=== PATIENT | female | born 1970 | race Caucasian/White ===

== ENCOUNTER 2017-07-27 10:23 | Inpatient (IN) | payer OTHER ==
[2017-07-27 11:31] VITALS: BMI 23.4
--- NOTE | 2017-07-27 13:06 | HP ---
CIWA Score - CIWA Score Nausea/Vomitin-Mild Nausea/No Vomiting Muscle Tremors: 4-Moderate,w/Arms Extend Anxiety: 4-Mod. Anxious/Guarded Agitation: 4-Moderately Restless Paroxysmal Sweats: 3 Orientation: 0-Oriented Tacttile Disturbances: 0-None Auditory Disturbances: 0-None Visual Disturbances: 0-None Headache: 1-Very Mild CIWA-Ar Total Score: 17 Admission ROS BHS - HPI Chief Complaint: I am here for detox Allergies/Adverse Reactions: Allergies Allergy/AdvReac Type Severity Reaction Status Date / Time No Known Allergies Allergy Verified 07/27/17 11:55 History of Present Illness: pt is a 47yr old female with a history of alcohol and cocaine dependence seeking detox for treatment. Exam Limitations: No Limitations - Ebola screening Have you traveled outside of the country in the last 21 days: No Have you had contact with anyone from an Ebola affected area: No Have you been sick,other than usual withdrawal symptoms: No Do you have a fever: No - Review of Systems Constitutional: Chills, Diaphoresis, Night Sweats, Changes in sleep, Unintentional Wgt. Loss EENT: reports: No Symptoms Reported, Tearing, Nose Congestion Respiratory: reports: No Symptoms reported Cardiac: reports: No Symptoms Reported, Lightheadedness, Syncope GI: reports: Diarrhea, Nausea, Poor Appetite, Poor Fluid Intake, Vomiting, Indigestion : reports: No Symptoms Reported Musculoskeletal: reports: Back Pain, Joint Pain Integumentary: reports: Flushing, Pruritus, Sweating Neuro: reports: Headache, Tingling, Tremors Endocrine: reports: Excessive Sweating, Flushing, Intolerance to Cold, Intolerance to Heat Hematology: reports: No Symptoms Reported Psychiatric: reports: Judgement Intact, Mood/Affect Appropiate, Orientated x3, Agitated, Anxious Other Systems: Reviewed and Negative Patient History - Patient Medical History Hx Anemia: No Hx Asthma: No Hx Chronic Obstructive Pulmonary Disease (COPD): No Hx Cancer: No Hx Cardiac Disorders: No Hx Congestive Heart Failure: No Hx Hypertension: Yes (non compliant) Hx Hypercholesterolemia: No Hx Pacemaker: No HX Cerebrovascular Accident: No Hx Seizures: No Hx Dementia: No Hx Diabetes: No Hx Gastrointestinal Disorders: No Hx Liver Disease: No Hx Genitourinary Disorders: No Hx Sexually Transmitted Disorders: No Hx Renal Disease (ESRD): No Hx Thyroid Disease: No Hx Human Immunodeficiency Virus (HIV): No (negative) Hx Hepatitis C: Yes Hx Depression: Yes Hx Suicide Attempt: Yes (Tried to overdose at age 15 yrs old/ denies any S/H ideation) Hx Bipolar Disorder: Yes Hx Schizophrenia: Yes - Patient Surgical History Past Surgical History: Yes Hx Neurologic Surgery: No Hx Cataract Extraction: No Hx Cardiac Surgery: No Hx Lung Surgery: No Hx Breast Surgery: No Hx Breast Biopsy: No Hx Abdominal Surgery: No Hx Appendectomy: No Hx Cholecystectomy: No Hx Genitourinary Surgery: No Hx Section: Yes (x3 [id number]) Hx Orthopedic Surgery: No Other Surgical History: facila contusion with repaired nose, mouth and lip areas ( stitched. Contus Anesthesia Reaction: No - PPD History Previous Implant?: Yes Documented Results: Negative w/o proof Implanted On Prior [facility] Admission?: Yes PPD to be Administered?: Yes - Reproductive History Patient is a Female of Child Bearing Age (11 -55 yrs old): Yes Last Menstrual Period: 07/19/17 Patient : No - Smoking Cessation Smoking history: Current every day smoker Have you smoked in the past 12 months: Yes Aproximately how many cigarettes per day: 5 Hx Chewing Tobacco Use: No Initiated information on smoking cessation: Yes 'Breaking Loose' booklet given: 07/27/17 - Substance & Tx. History Hx Alcohol Use: Yes Hx Substance Use: Yes Substance Use Type: Alcohol, Cocaine Hx Substance Use Treatment: Yes (last detox [facility]) - Substances Abused Alcohol Route: Oral Frequency: Daily Amount used: 2-3 PINTS VODKA Age of first use: 17 Date of Last Use: 07/27/17 Crack Route: Smoking Frequency: Daily Amount used: 2 BAGS Age of first use: 35 Date of Last Use: 07/26/17 Family Disease History - Family Disease History Family Disease History: Heart Disease: Mother, Respiratory: Father (etoh), Other : Son Admission Physical Exam BHS - Vital Signs Vital Signs: Vital Signs - 24 hr 07/27/17 11:24 Temperature 96.7 F L Pulse Rate 88 Respiratory 18 Rate Blood Pressure 139/91 - Physical General Appearance: Yes: Appropriately Dressed, Moderate Distress, Tremorous, Irritable, Sweating, Anxious HEENTM: Yes: Normal Voice, Nasal Congestion, Rhinorrhea Respiratory: Yes: Lungs Clear, Normal Breath Sounds, No Respiratory Distress Neck: Yes: No masses,lesions,Nodules Breast: Yes: Within Normal Limits Cardiology: Yes: Regular Rhythm, Regular Rate, S1, S2 Abdominal: Yes: Normal Bowel Sounds, Non Tender, Soft Genitourinary: Yes: Within Normal Limits Back: Yes: Normal Inspection Musculoskeletal: Yes: full range of Motion Extremities: Yes: Normal Capillary Refill, Normal Inspection, Non-Tender, Tremors Neurological: Yes: Fully Oriented, Alert, Normal Response Integumentary: Yes: Diaphoresis, Rash Lymphatic: Yes: Within Normal Limits - Diagnostic (1) Alcohol dependence with uncomplicated withdrawal Current Visit: Yes Status: Chronic (2) Cocaine dependence Current Visit: No Status: Acute Qualifiers: Substance use status: uncomplicated Qualified Code(s): F14.20 - Cocaine dependence, uncomplicated (3) Nicotine dependence Current Visit: No Status: Chronic Qualifiers: Nicotine product type: cigarettes Substance use status: uncomplicated Qualified Code(s): F17.210 - Nicotine dependence, cigarettes, uncomplicated Cleared for Admission [facility] - Detox or Rehab [facility] Level of Care: Medically Managed Detox Regimen/Protocol: Librium [facility] Breath Alcohol Content Breath Alcohol Content: 0.008 Urine Pregancy Test - Result Urine Test Results: Negative- NO Line Present Urine Drug Screen - Results Drug Screen Negative: No Urine Drug Screen Results: JEAN-Cocaine
[2017-07-27] MEDS ORDERED: LOPERAMIDE HCL 2 MG CAPSULE PO PRN (13:13)
[2017-07-27] MEDS ORDERED: guaiFENesin/D-METHORPHAN HB 10 ML UNIT-DOSE CUPS PO PRN (13:13)
[2017-07-27] MEDS ORDERED: hydrOXYzine PAMOATE 50 MG CAPSULE (FP) PO PRN (13:13)
[2017-07-27] MEDS ORDERED: NICOTINE POLACRILEX 4 MG GUM BUC PRN (13:13)
[2017-07-27] MEDS ORDERED: MAG HYDROX/AL HYDROX/SIMETH 30 ML UNIT-DOSE CUP PO PRN (13:13)
[2017-07-27] MEDS ORDERED: chlordiazePOXIDE HCL 25 MG CAPSULE PO PRN (13:13)
[2017-07-27] MEDS ORDERED: MAGNESIUM HYDROX 2400MG/30ML ORAL SUSPENSION 30 ML CUP PO PRN (13:13)
[2017-07-27] MEDS ORDERED: MENTHOL/PHENOL 1 EACH UD MM PRN (13:13)
[2017-07-27] MEDS ORDERED: P-EPHED 60MG/TRIPROLIDI 2.5MG TABLET PO PRN (13:13)
[2017-07-27] MEDS ORDERED: MAGNESIUM CITRATE 300 ML BOTTLE PO PRN (13:13)
[2017-07-27] MEDS ORDERED: ACETAMINOPHEN 325 MG TABLET (FP) PO PRN (13:13)
[2017-07-27] MEDS ORDERED: COLLOIDAL OATMEAL 1 BAR EACH TP PRN (13:18)
[2017-07-27] MEDS ORDERED: amLODIPine BESYLATE 10 MG TABLET (FP) PO ONE (14:25)
[2017-07-27] MEDS ORDERED: chlordiazePOXIDE HCL 25 MG CAPSULE PO ONE (14:26)
[2017-07-27] MEDS: IBUPROFEN 400 MG TABLET (FP) PO PRN ×2 (15:36→22:21)
[2017-07-27] MEDS: chlordiazePOXIDE HCL 25 MG CAPSULE PO SCH ×2 (16:46→22:22)
[2017-07-27 18:19] LABS: URINE APPEARANCE SLCLOUDY; URINE BILIRUBIN NEGATIVE (NEGATIVE); URINE BLOOD 1+ (NEGATIVE); URINE COLOR YELLOW; URINE GLUCOSE (UA) NEGATIVE (NEGATIVE); URINE KETONE NEGATIVE (NEGATIVE); URINE LEUK ESTERASE TRACE (NEGATIVE); URINE NITRITE NEGATIVE (NEGATIVE); URINE PROTEIN NEGATIVE (NEGATIVE)
[2017-07-27 18:58] LABS: URINE BACTERIA RARE /hpf (NONE SEEN); URINE MUCUS RARE; URINE RBC <1 /hpf (0-3); URINE WBC 19 /hpf (3-5)
[2017-07-27] MEDS: THIAMINE HCL 100 MG TABLET (FP) PO SCH (22:21)
[2017-07-27] MEDS: CLOTRIMAZOLE/BETAMET DIPROP TOPICAL CREAM 45 GM TUBE TP SCH (22:22)
[2017-07-27 23:28] LABS: URINE LEUK ESTERASE Negative (NEGATIVE)
[2017-07-28] MEDS: IBUPROFEN 400 MG TABLET (FP) PO PRN ×2 (05:48→22:53)
[2017-07-28] MEDS: chlordiazePOXIDE HCL 25 MG CAPSULE PO SCH ×4 (05:48→22:53)
[2017-07-28 09:42] LABS: MCH 26.6 pg (25.7-33.7); MEAN CELL VOLUME 83.1 fl (80-96); MEAN PLT VOLUME 7.7 fl (7.5-11.1); PLATELET COUNT 189 K/MM3 (134-434); RDW 17.8 % (11.6-15.6); WHITE BLOOD COUNT 5.5 K/mm3 (4.0-10.0)
[2017-07-28 10:07] LABS: ALBUMIN 3.7 g/dl (3.4-5.0); ALK PHOS 85 U/L (45-117); ANION GAP 8 (8-16); BILIRUBIN,TOTAL 0.5 mg/dL (0.2-1.0); CALCIUM 8.7 mg/dL (8.5-10.1); CO2 30 mmol/L (21-32); CREATININE 0.6 mg/dL (0.55-1.02); GLUCOSE,RANDOM 83 mg/dL (74-106); SGOT/AST 56 U/L (15-37); SGPT/ALT 37 U/L (12-78); TOT PROT 7.8 g/dl (6.4-8.2)
[2017-07-28] MEDS: amLODIPine BESYLATE 10 MG TABLET (FP) PO SCH (10:15)
[2017-07-28] MEDS: CLOTRIMAZOLE/BETAMET DIPROP TOPICAL CREAM 45 GM TUBE TP SCH ×2 (10:16→22:54)
[2017-07-28] MEDS: PRENATAL VITAMINS W/ FOLIC ACID TABLET (FP) PO SCH (10:16)
[2017-07-28] MEDS: NICOTINE 21 MG/24 HOURS TOPICAL PATCH TD SCH (10:16)
--- NOTE | 2017-07-28 11:57 | PN ---
[facility] CIWA - CIWA Score Nausea/Vomitin-No Nausea/No Vomiting Muscle Tremors: 3 Anxiety: 4-Mod. Anxious/Guarded Agitation: 3 Paroxysmal Sweats: 3 Orientation: 0-Oriented Tacttile Disturbances: 0-None Auditory Disturbances: 0-None Visual Disturbances: 0-None Headache: 0-None Present CIWA-Ar Total Score: 13 S Progress Note (SOAP) Subjective: Anxiety,tremors,sweating,interrupted sleep,restless Objective: 07/28/17 11:56 Vital Signs - 8 hr 07/28/17 07/28/17 07:21 10:00 Temperature 98.2 F 97.7 F Pulse Rate 103 H 95 H Respiratory 20 18 Rate Blood Pressure 107/79 131/92 Laboratory Last Values WBC 5.5 K/mm3 (4.0-10.0) D 07/28/17 06:05 RBC 4.22 M/mm3 (3.60-5.2) 07/28/17 06:05 Hgb 11.2 GM/dL (10.7-15.3) 07/28/17 06:05 Hct 35.1 % (32.4-45.2) 07/28/17 06:05 MCV 83.1 fl (80-96) 07/28/17 06:05 MCH 26.6 pg (25.7-33.7) 07/28/17 06:05 MCHC 32.0 g/dl (32.0-36.0) 07/28/17 06:05 RDW 17.8 % (11.6-15.6) H 07/28/17 06:05 Plt Count 189 K/MM3 (134-434) 07/28/17 06:05 MPV 7.7 fl (7.5-11.1) 07/28/17 06:05 Sodium 138 mmol/L (136-145) 07/28/17 06:05 Potassium 3.6 mmol/L (3.5-5.1) 07/28/17 06:05 Chloride 100 mmol/L (98-107) 07/28/17 06:05 Carbon Dioxide 30 mmol/L (21-32) 07/28/17 06:05 Anion Gap 8 (8-16) 07/28/17 06:05 BUN 8 mg/dL (7-18) D 07/28/17 06:05 Creatinine 0.6 mg/dL (0.55-1.02) 07/28/17 06:05 Creat Clearance w eGFR > 60 (>60) 07/28/17 06:05 Random Glucose 83 mg/dL (74-106) D 07/28/17 06:05 Calcium 8.7 mg/dL (8.5-10.1) 07/28/17 06:05 Total Bilirubin 0.5 mg/dL (0.2-1.0) D 07/28/17 06:05 AST 56 U/L (15-37) H 07/28/17 06:05 ALT 37 U/L (12-78) 07/28/17 06:05 Alkaline Phosphatase 85 U/L (45-117) 07/28/17 06:05 Total Protein 7.8 g/dl (6.4-8.2) 07/28/17 06:05 Albumin 3.7 g/dl (3.4-5.0) 07/28/17 06:05 Urine Color Yellow 07/27/17 15:52 Urine Appearance Slcloudy 07/27/17 15:52 Urine pH 7.0 (5.0-8.0) 07/27/17 15:52 Ur Specific [place] 1.014 (1.001-1.035) 07/27/17 15:52 Urine Protein Negative (NEGATIVE) 07/27/17 15:52 Urine Glucose (UA) Negative (NEGATIVE) 07/27/17 15:52 Urine Ketones Negative (NEGATIVE) 07/27/17 15:52 Urine Blood 1+ (NEGATIVE) H 07/27/17 15:52 Urine Nitrite Negative (NEGATIVE) 07/27/17 15:52 Urine Bilirubin Negative (NEGATIVE) 07/27/17 15:52 Urine Urobilinogen 2.0 mg/dL (0.2-1.0) H 07/27/17 15:52 Ur Leukocyte Esterase Negative (NEGATIVE) 07/27/17 15:52 Urine WBC (Auto) 19 /hpf (3-5) 07/27/17 15:52 Urine RBC (Auto) <1 /hpf (0-3) 07/27/17 15:52 Ur Epithelial Cells Rare /HPF (FEW) 07/27/17 15:52 Urine Bacteria Rare /hpf (NONE SEEN) 07/27/17 15:52 Urine Mucus Rare 07/27/17 15:52 labs noted Assessment: 07/28/17 11:57 Withdrawal sx. Plan: Continue detox
[2017-07-28 12:47] LABS: HIV 1 & 2 AB NEGATIVE; HIV 1 AGp24 NEGATIVE
--- NOTE | 2017-07-28 14:53 | CONSULT ---
[facility] Psychiatric Consult - Data Date of interview: 07/28/17 Admission source: Self-referred Identifying data: Ms Sarmiento is a 47 years old single female, mother of 4 children unemployed on food stamp, homeless Substance Abuse History: Reports history of alcohol and cocaine use. Refer to Addiction counselor's note for furter information Medical History: Significant for a history of herpes genitalis and hypertension , hepatitis c and a history of facial surgery (facial contusion with repaired nose and stitched lip). Smokes 5 cigarettes daily. Psychiatric History: Patient reports that her first psychiatric contact was age 15 when she was admitted to [facility] for mood disturbance and suicidal attempt by overdose. Reports 2 subsequents admissions to [facility] and most recent one February-Mar 2017 to [facility] for depression and SI. She was discharged on Prozac 20 mg po daily and Vistaril 25 mg po Q 6 hrs and referred to a clinic for aftercare. 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 Reports having an active case for drinking beer in public Mental Status Exam - Mental Status Exam Alert and Oriented to: Time, Place, Person Cognitive Function: Fair Patient Appearance: Well Groomed Mood: Hopeful, Euthymic Affect: Appropriate Patient Behavior: Cooperative Speech Pattern: Clear Voice Loudness: Normal Thought Process: Intact, Goal Oriented Thought Disorder: Not Present Hallucinations: Denies Suicidal Ideation: Denies Homicidal Ideation: Denies Insight/Judgement: Poor Sleep: Poorly Appetite: Good Muscle strength/Tone: Normal Gait/Station: Normal Psychiatric Findings - Problem List ([place] 1, 2,3) (1) Schizoaffective disorder Current Visit: No Status: Chronic Qualifiers: Schizoaffective disorder type: bipolar Qualified Code(s): F25.0 - Schizoaffective disorder, bipolar type Comment: Historical diagnosis. (2) Substance-induced anxiety disorder Current Visit: Yes Status: Acute (3) Alcohol dependence with uncomplicated withdrawal Current Visit: Yes Status: Acute (4) Cocaine dependence Current Visit: No Status: Acute Qualifiers: Substance use status: uncomplicated Qualified Code(s): F14.20 - Cocaine dependence, uncomplicated (5) Nicotine dependence Current Visit: No Status: Chronic Qualifiers: Nicotine product type: cigarettes Substance use status: uncomplicated Qualified Code(s): F17.210 - Nicotine dependence, cigarettes, uncomplicated (6) Hepatitis C Current Visit: No Status: Chronic Qualifiers: Viral hepatitis chronicity: chronic Hepatic coma status: without hepatic coma Qualified Code(s): B18.2 - Chronic viral hepatitis C (7) Hypertension Current Visit: No Status: Chronic Qualifiers: Hypertension type: essential hypertension Qualified Code(s): I10 - Essential (primary) hypertension - Initial Treatment Plan Initial Treatment Plan: 1) Contunue Prozac 20 mg po daily. 2) Continue inpatient detoxification
[2017-07-29] MEDS: THIAMINE HCL 100 MG TABLET (FP) PO SCH ×2 (00:05→22:34)
[2017-07-29] MEDS: chlordiazePOXIDE HCL 25 MG CAPSULE PO SCH ×2 (05:33→10:38)
[2017-07-29] MEDS: IBUPROFEN 400 MG TABLET (FP) PO PRN ×2 (05:35→10:39)
--- NOTE | 2017-07-29 08:36 | EKG ---
Test Reason : Blood Pressure : / mmHG Vent. Rate : 080 BPM Atrial Rate : 080 BPM P-R Int : 112 ms QRS Dur : 086 ms QT Int : 404 ms P-R-T Axes : -10 051 049 degrees QTc Int : 465 ms NORMAL SINUS RHYTHM WITH SHORT PA NO PREVIOUS ECGS AVAILABLE Confirmed by GUS KUMARI MD ([id number]) on 07/29/2017 8:36:32 AM Referred By: Confirmed By:GUS KUMARI MD
[2017-07-29] MEDS: FLUoxetine HCL 20 MG CAPSULE (FP) PO SCH ×2 (08:46→10:38)
[2017-07-29] MEDS: amLODIPine BESYLATE 10 MG TABLET (FP) PO SCH (10:38)
[2017-07-29] MEDS: PRENATAL VITAMINS W/ FOLIC ACID TABLET (FP) PO SCH (10:38)
[2017-07-29] MEDS: CLOTRIMAZOLE/BETAMET DIPROP TOPICAL CREAM 45 GM TUBE TP SCH ×2 (10:39→22:34)
[2017-07-29] MEDS: NICOTINE 21 MG/24 HOURS TOPICAL PATCH TD SCH (10:39)
--- NOTE | 2017-07-29 11:09 | PN ---
S CIWA - CIWA Score Nausea/Vomitin-No Nausea/No Vomiting Muscle Tremors: 3 Anxiety: 1-Mildly Anxious Agitation: 0-Normal Activity Paroxysmal Sweats: 1-Minimal Palms Moist Orientation: 0-Oriented Tacttile Disturbances: 0-None Auditory Disturbances: 0-None Visual Disturbances: 0-None Headache: 0-None Present CIWA-Ar Total Score: 5 BHS Progress Note (SOAP) Subjective: tremor anxiety sweat Objective: 07/29/17 11:09 Vital Signs Temperature 98 F 07/29/17 10:40 Pulse Rate 106 H 07/29/17 10:40 Respiratory Rate 16 07/29/17 10:40 Blood Pressure 143/88 07/29/17 10:40 O2 Sat by Pulse Oximetry (%) Laboratory Last Values WBC 5.5 K/mm3 (4.0-10.0) D 07/28/17 06:05 RBC 4.22 M/mm3 (3.60-5.2) 07/28/17 06:05 Hgb 11.2 GM/dL (10.7-15.3) 07/28/17 06:05 Hct 35.1 % (32.4-45.2) 07/28/17 06:05 MCV 83.1 fl (80-96) 07/28/17 06:05 MCH 26.6 pg (25.7-33.7) 07/28/17 06:05 MCHC 32.0 g/dl (32.0-36.0) 07/28/17 06:05 RDW 17.8 % (11.6-15.6) H 07/28/17 06:05 Plt Count 189 K/MM3 (134-434) 07/28/17 06:05 MPV 7.7 fl (7.5-11.1) 07/28/17 06:05 Sodium 138 mmol/L (136-145) 07/28/17 06:05 Potassium 3.6 mmol/L (3.5-5.1) 07/28/17 06:05 Chloride 100 mmol/L (98-107) 07/28/17 06:05 Carbon Dioxide 30 mmol/L (21-32) 07/28/17 06:05 Anion Gap 8 (8-16) 07/28/17 06:05 BUN 8 mg/dL (7-18) D 07/28/17 06:05 Creatinine 0.6 mg/dL (0.55-1.02) 07/28/17 06:05 Creat Clearance w eGFR > 60 (>60) 07/28/17 06:05 Random Glucose 83 mg/dL (74-106) D 07/28/17 06:05 Calcium 8.7 mg/dL (8.5-10.1) 07/28/17 06:05 Total Bilirubin 0.5 mg/dL (0.2-1.0) D 07/28/17 06:05 AST 56 U/L (15-37) H 07/28/17 06:05 ALT 37 U/L (12-78) 07/28/17 06:05 Alkaline Phosphatase 85 U/L (45-117) 07/28/17 06:05 Total Protein 7.8 g/dl (6.4-8.2) 07/28/17 06:05 Albumin 3.7 g/dl (3.4-5.0) 07/28/17 06:05 Urine Color Yellow 07/27/17 15:52 Urine Appearance Slcloudy 07/27/17 15:52 Urine pH 7.0 (5.0-8.0) 07/27/17 15:52 Ur Specific [place] 1.014 (1.001-1.035) 07/27/17 15:52 Urine Protein Negative (NEGATIVE) 07/27/17 15:52 Urine Glucose (UA) Negative (NEGATIVE) 07/27/17 15:52 Urine Ketones Negative (NEGATIVE) 07/27/17 15:52 Urine Blood 1+ (NEGATIVE) H 07/27/17 15:52 Urine Nitrite Negative (NEGATIVE) 07/27/17 15:52 Urine Bilirubin Negative (NEGATIVE) 07/27/17 15:52 Urine Urobilinogen 2.0 mg/dL (0.2-1.0) H 07/27/17 15:52 Ur Leukocyte Esterase Negative (NEGATIVE) 07/27/17 15:52 Urine WBC (Auto) 19 /hpf (3-5) 07/27/17 15:52 Urine RBC (Auto) <1 /hpf (0-3) 07/27/17 15:52 Ur Epithelial Cells Rare /HPF (FEW) 07/27/17 15:52 Urine Bacteria Rare /hpf (NONE SEEN) 07/27/17 15:52 Urine Mucus Rare 07/27/17 15:52 RPR Titer Nonreactive (NONREACTIVE) 07/28/17 06:05 HIV 1&2 Antibody Screen Negative 07/27/17 13:00 HIV P24 Antigen Negative 07/27/17 13:00 lab noted Assessment: 07/29/17 11:09 withdrawal sx Plan: continue detox
[2017-07-29] MEDS: chlordiazePOXIDE 5 MG CAPSULE PO SCH ×2 (17:51→22:34)
[2017-07-30] MEDS: chlordiazePOXIDE 5 MG CAPSULE PO SCH ×2 (05:51→11:24)
[2017-07-30] MEDS: IBUPROFEN 400 MG TABLET (FP) PO PRN (05:52)
[2017-07-30] MEDS: amLODIPine BESYLATE 10 MG TABLET (FP) PO SCH (11:23)
[2017-07-30] MEDS: PRENATAL VITAMINS W/ FOLIC ACID TABLET (FP) PO SCH (11:23)
[2017-07-30] MEDS: NICOTINE 21 MG/24 HOURS TOPICAL PATCH TD SCH (11:24)
[2017-07-30] MEDS: CLOTRIMAZOLE/BETAMET DIPROP TOPICAL CREAM 45 GM TUBE TP SCH ×2 (11:28→22:58)
[2017-07-30] MEDS: FLUoxetine HCL 20 MG CAPSULE (FP) PO SCH (12:10)
--- NOTE | 2017-07-30 12:51 | PN ---
BHS Progress Note (SOAP) Subjective: little sweats feeling so much better Objective: 07/30/17 12:51 Vital Signs Temperature 98.2 F 07/30/17 10:00 Pulse Rate 98 H 07/30/17 10:00 Respiratory Rate 16 07/30/17 10:00 Blood Pressure 102/77 07/30/17 10:00 O2 Sat by Pulse Oximetry (%) aaox3 ambulating no acute distress Assessment: 07/30/17 12:51 withdrawal sx Plan: continue detox d/c in am
[2017-07-30] MEDS: chlordiazePOXIDE HCL 10 MG CAPSULE PO SCH ×2 (17:40→22:25)
[2017-07-30] MEDS: THIAMINE HCL 100 MG TABLET (FP) PO SCH (22:25)
[2017-07-31] MEDS: chlordiazePOXIDE HCL 10 MG CAPSULE PO SCH (05:36)
[2017-07-31] MEDS: IBUPROFEN 400 MG TABLET (FP) PO PRN (05:37)
[2017-07-31 06:57] VITALS: BP 106/72; PULSE 101; TEMP 98.1
--- NOTE | 2017-07-31 08:41 | DS ---
[facility] Detox Discharge Summary Admission Date: 07/27/17 Discharge Date: 07/31/17 - History Present History: Alcohol Dependence, Cocaine Dependence - Physical Exam Results Vital Signs: Vital Signs Temperature 98.1 F 07/31/17 06:00 Pulse Rate 101 H 07/31/17 06:00 Respiratory Rate 18 07/31/17 06:00 Blood Pressure 106/72 07/31/17 06:00 O2 Sat by Pulse Oximetry (%) - Treatment Hospital Course: Detox Protocol Followed, Detoxed Safely, Responded well, Discharged Condition Good, Rehab Referral Accepted - Medication Discharge Medications: Ambulatory Orders Fluoxetine HCl [Prozac -] 40 mg PO DAILY #30 capsule 07/28/17 Hydroxyzine Pamoate [Vistaril -] 50 mg PO Q4H PRN #120 capsule 07/28/17 - Diagnosis (1) Alcohol dependence with uncomplicated withdrawal Current Visit: Yes Status: Acute (2) Cocaine dependence Current Visit: No Status: Chronic Qualifiers: Substance use status: uncomplicated Qualified Code(s): F14.20 - Cocaine dependence, uncomplicated (3) Nicotine dependence Current Visit: Yes Status: Chronic Qualifiers: Nicotine product type: cigarettes Substance use status: uncomplicated Qualified Code(s): F17.210 - Nicotine dependence, cigarettes, uncomplicated (4) Substance-induced anxiety disorder Current Visit: Yes Status: Acute (5) Substance induced mood disorder Current Visit: No Status: Acute (6) Hepatitis C Current Visit: No Status: Chronic Qualifiers: Viral hepatitis chronicity: chronic Hepatic coma status: without hepatic coma Qualified Code(s): B18.2 - Chronic viral hepatitis C (7) Hypertension Current Visit: Yes Status: Chronic Qualifiers: Hypertension type: essential hypertension Qualified Code(s): I10 - Essential (primary) hypertension (8) Schizoaffective disorder Current Visit: No Status: Chronic Qualifiers: Schizoaffective disorder type: bipolar Qualified Code(s): F25.0 - Schizoaffective disorder, bipolar type - AMA Did Patient Leave Against Medical Advice: No
== END 2017-07-31 09:30 | disposition home or self-care (01) | DRG 774 ==
LOC: YASAS 10:23 → Y6N 14:11
PROVIDERS: ADMIT Internal Medicine; ATTEND Internal Medicine
PROC: HZ2ZZZZ Detoxification Services for Substance Abuse Treatment (ICD-10-PCS; principal; 2017-07-27)
DX: F10.230 Alcohol dependence with withdrawal, uncomplicated (principal); F14.20 Cocaine dependence, uncomplicated; F17.210 Nicotine dependence, cigarettes, uncomplicated; F19.24 Other psychoactive substance dependence with psychoactive substance-induced mood disorder; F25.0 Schizoaffective disorder, bipolar type; I10 Essential (primary) hypertension; B18.2 Chronic viral hepatitis C
CPT/HCPCS: 36415; 80053; 81003; 81015; 85027; 86593; 87389; 93005; 93010

== ENCOUNTER 2018-01-23 10:18 | Inpatient (IN) | payer OTHER ==
[2018-01-23 11:08] VITALS: BMI 26.2
--- NOTE | 2018-01-23 12:12 | HP ---
CIWA Score - CIWA Score Nausea/Vomitin Muscle Tremors: 2 Anxiety: 1-Mildly Anxious Agitation: 0-Normal Activity Paroxysmal Sweats: 1-Minimal Palms Moist Orientation: 1-Uncertain about Date Tacttile Disturbances: 2-Mild Itch/Numbness/Burn Auditory Disturbances: 0-None Visual Disturbances: 0-None Headache: 3-Moderate CIWA-Ar Total Score: 12 Admission ROS S - HPI Chief Complaint: ETOH withdrawal symptoms. Allergies/Adverse Reactions: Allergies Allergy/AdvReac Type Severity Reaction Status Date / Time No Known Allergies Allergy Verified 01/23/18 11:57 History of Present Illness: Patient presents with ETOH withdrawal symptoms. Last detox admission was 08/05 at [facility]. Patient started drinking at age 17. Drinks up to 1-2 pints daily. Denies history of seizures from ETOH use. Also smokes crack/cocaine and marijuana daily. Smokes up to 2 bags of cocaine daily and one blunt once a week. Last drink and substance use yesterday at 9pm. PMH includes HTN, not treated. Denies SI/HI. Suicide attempt at age 17, overdose of pills. Exam Limitations: No Limitations - Ebola screening Have you traveled outside of the country in the last 21 days: No (N) Have you had contact with anyone from an Ebola affected area: No Have you been sick,other than usual withdrawal symptoms: No Do you have a fever: No - Review of Systems Constitutional: Changes in sleep, Weight Stable EENT: reports: No Symptoms Reported Respiratory: reports: No Symptoms reported Cardiac: reports: No Symptoms Reported GI: reports: Diarrhea, Nausea, Poor Fluid Intake : reports: No Symptoms Reported Musculoskeletal: reports: Back Pain, Joint Pain, Muscle Pain Integumentary: reports: Sweating Neuro: reports: Headache, Numbness, Tingling, Tremors Endocrine: reports: No Symptoms Reported Hematology: reports: Anemia Psychiatric: reports: Anxious, Depressed Patient History - Patient Medical History Hx Anemia: Yes (not treated) Hx Asthma: No Hx Chronic Obstructive Pulmonary Disease (COPD): No Hx Cancer: No Hx Cardiac Disorders: No Hx Congestive Heart Failure: No Hx Hypertension: Yes (non compliant with meds.) Hx Hypercholesterolemia: No Hx Pacemaker: No HX Cerebrovascular Accident: No Hx Seizures: No Hx Dementia: No Hx Diabetes: No Hx Gastrointestinal Disorders: No Hx Liver Disease: No Hx Genitourinary Disorders: No Hx Sexually Transmitted Disorders: No Hx Renal Disease (ESRD): No Hx Thyroid Disease: No Hx Human Immunodeficiency Virus (HIV): No (negative) Hx Hepatitis C: Yes Hx Depression: Yes Hx Suicide Attempt: Yes (Tried to overdose at age 17 yrs old.) Hx Bipolar Disorder: Yes Hx Schizophrenia: No - Patient Surgical History Past Surgical History: Yes Hx Neurologic Surgery: No Hx Cataract Extraction: No Hx Cardiac Surgery: No Hx Lung Surgery: No Hx Breast Surgery: No Hx Breast Biopsy: No Hx Abdominal Surgery: No Hx Appendectomy: No Hx Cholecystectomy: No Hx Genitourinary Surgery: No Hx Section: Yes (x3 [id number]) Hx Orthopedic Surgery: No Other Surgical History: facial contusion with repaired nose, mouth and lip areas ( stitched. Contus Anesthesia Reaction: No - PPD History Previous Implant?: Yes Documented Results: Negative w/proof Implanted On Prior R Admission?: Yes Date: 07/29/17 Results: 0 mm PPD to be Administered?: No - Reproductive History Last Menstrual Period: 01/16/18 Patient : No - Smoking Cessation Smoking history: Current every day smoker Have you smoked in the past 12 months: Yes Aproximately how many cigarettes per day: 5 Hx Chewing Tobacco Use: No Initiated information on smoking cessation: Yes 'Breaking Loose' booklet given: 01/23/18 - Substance & Tx. History Hx Alcohol Use: Yes Hx Substance Use: Yes Substance Use Type: Alcohol, Cocaine, Marijuana Hx Substance Use Treatment: Yes - Substances Abused Alcohol Route: Oral Frequency: Daily Amount used: 2 PINTS VODKA Age of first use: 17 Date of Last Use: 01/22/18 Crack Route: Smoking Frequency: Daily Amount used: 2 BAGS Age of first use: 35 Date of Last Use: 01/22/18 Family Disease History - Family Disease History Family Disease History: Heart Disease: Mother, Respiratory: Father (etoh), Other : Son Admission Physical Exam BHS - Vital Signs Vital Signs: Vital Signs - 24 hr 01/23/18 11:05 Temperature 98 F Pulse Rate 79 Respiratory 17 Rate Blood Pressure 140/95 - Physical General Appearance: Yes: Disheveled, Tremorous, Sweating, Anxious HEENTM: Yes: EOMI, Hearing grossly Normal, Normal ENT Inspection, Normocephalic , Normal Voice, SAMMIE, Pharynx Normal Respiratory: Yes: Chest Non-Tender, Lungs Clear, Normal Breath Sounds, No Respiratory Distress, No Accessory Muscle Use Neck: Yes: Within Normal Limits, No masses,lesions,Nodules, Supple, Trachea in good position Breast: Yes: Breast Exam Deferred Cardiology: Yes: Regular Rhythm, Regular Rate, S1, S2 Abdominal: Yes: Normal Bowel Sounds, Non Tender, Soft Genitourinary: Yes: Within Normal Limits Back: Yes: Muscle Spasm Musculoskeletal: Yes: full range of Motion, Gait Steady, Back pain, Muscle Pain Extremities: Yes: Normal Inspection, Normal Range of Motion, Non-Tender, Tremors Neurological: Yes: supervisor II-XII NML intact, Alert, Motor Strength 5/5, Numbness, Depressed Affect Integumentary: Yes: Normal Color, Warm, Moist Lymphatic: Yes: Within Normal Limits - Diagnostic (1) Depressed affect Current Visit: Yes Status: Suspected (2) Anxiety Current Visit: Yes Status: Suspected (3) Marijuana dependence Current Visit: Yes Status: Acute (4) Alcohol dependence with uncomplicated withdrawal Current Visit: Yes Status: Acute (5) Cocaine dependence Current Visit: Yes Status: Chronic Qualifiers: Substance use status: uncomplicated Qualified Code(s): F14.20 - Cocaine dependence, uncomplicated (6) Hypertension Current Visit: Yes Status: Chronic Qualifiers: Hypertension type: essential hypertension Qualified Code(s): I10 - Essential (primary) hypertension (7) Nicotine dependence Current Visit: Yes Status: Chronic Qualifiers: Nicotine product type: cigarettes Substance use status: uncomplicated Qualified Code(s): F17.210 - Nicotine dependence, cigarettes, uncomplicated Cleared for Admission [facility] - Detox or Rehab [facility] Level of Care: Medically Managed Detox Regimen/Protocol: Librium [facility] Breath Alcohol Content Breath Alcohol Content: 0 Urine Pregancy Test - Result Urine Test Results: Negative- NO Line Present Urine Drug Screen - Results Drug Screen Negative: No Urine Drug Screen Results: THC-Marijuana, JEAN-Cocaine
[2018-01-23] MEDS ORDERED: P-EPHED 60MG/TRIPROLIDI 2.5MG TABLET PO PRN (12:21)
[2018-01-23] MEDS ORDERED: guaiFENesin/D-METHORPHAN HB 10 ML UNIT-DOSE CUPS PO PRN (12:21)
[2018-01-23] MEDS ORDERED: MENTHOL/PHENOL 1 EACH UD MM PRN (12:21)
[2018-01-23] MEDS ORDERED: IBUPROFEN 400 MG TABLET (FP) PO PRN (12:21)
[2018-01-23] MEDS ORDERED: NICOTINE POLACRILEX 2 MG GUM BC PRN (12:21)
[2018-01-23] MEDS ORDERED: MAGNESIUM CITRATE 300 ML BOTTLE PO PRN (12:21)
[2018-01-23] MEDS ORDERED: MAGNESIUM HYDROX 2400MG/30ML ORAL SUSPENSION 30 ML CUP PO PRN (12:21)
[2018-01-23] MEDS ORDERED: LOPERAMIDE HCL 2 MG CAPSULE PO PRN (12:21)
[2018-01-23] MEDS ORDERED: chlordiazePOXIDE HCL 25 MG CAPSULE PO PRN (12:23)
[2018-01-23] MEDS ORDERED: chlordiazePOXIDE HCL 25 MG CAPSULE PO ONE (13:30)
[2018-01-23] MEDS: ACETAMINOPHEN 325 MG TABLET (FP) PO PRN (13:45)
--- NOTE | 2018-01-23 14:52 | EKG ---
Test Reason : Blood Pressure : / mmHG Vent. Rate : 073 BPM Atrial Rate : 073 BPM P-R Int : 120 ms QRS Dur : 082 ms QT Int : 428 ms P-R-T Axes : -14 037 059 degrees QTc Int : 471 ms NORMAL SINUS RHYTHM WITH SINUS ARRHYTHMIA NORMAL ECG WHEN COMPARED WITH ECG OF 27-JUL-2017 15:49, NO SIGNIFICANT CHANGE WAS FOUND Confirmed by JOLIE PADRON MD ([id number]) on 01/23/2018 2:52:17 PM Referred By: Confirmed By:JOLIE PADRON MD
[2018-01-23 17:05] LABS: URINE APPEARANCE SLCLOUDY; URINE BILIRUBIN NEGATIVE (<2.0 mg/dL); URINE BLOOD NEGATIVE (NEGATIVE); URINE COLOR LTYELLOW; URINE GLUCOSE (UA) NEGATIVE (NEGATIVE); URINE KETONE NEGATIVE (NEGATIVE); URINE LEUK ESTERASE NEGATIVE (NEGATIVE); URINE NITRITE NEGATIVE (NEGATIVE); URINE PROTEIN NEGATIVE (NEGATIVE); URINE UROBILINOGEN NEGATIVE mg/dL (0.2-1.0)
--- NOTE | 2018-01-23 17:10 | CONSULT ---
[facility] Psychiatric Consult - Data Date of interview: 01/23/18 Admission source: [facility] Identifying data: Patient is a 48 year old single female, mother of four, unemployed, homeless, and not receiving financial assistance. This is one of multiple admissions for patient. Pt. admitted to for alcohol, cocaine, and marijuana dependence. Substance Abuse History: Smoking Cessation. Smoking history: Current every day smoker. Have you smoked in the past 12 months: Yes. Aproximately how many cigarettes per day: 5. Hx Chewing Tobacco Use: No. Initiated information on smoking cessation: Yes. 'Breaking Loose' booklet given: 01/23/18. - Substance & Tx. History. Hx Alcohol Use: Yes. Hx Substance Use: Yes. Substance Use Type : Alcohol, Cocaine, Marijuana. Hx Substance Use Treatment: Yes. - Substances Abused. Alcohol. Route: Oral. Frequency: Daily. Amount used: 2 PINTS VODKA. Age of first use: 17. Date of Last Use: 01/22/18. Crack. Route: Smoking. Frequency: Daily. Amount used: 2 BAGS. Age of first use: 35. Date of Last Use: 01/22/18 Medical History: Anemia, hypertension, Hep C Psychiatric History: Patient's first psychiatric contact was at 15 years of age at [facility] after a suicidal attempt via overdose. Patient's most recent psychiatric hospitalization was at [facility] in 2017 for depression. OPD was provided in the [place], [place] (unknown clinic) approximately 2 years ago. Pt. was prescribed prozac 20mg daily but reports nonadherence to medications and outpatient treatment. Last accepted prozac while in detox in July of 2017. Pt. currently denies suicidal and homicidal ideation. Physical/Sexual Abuse/Trauma History: Denies. Mental Status Exam - Mental Status Exam Alert and Oriented to: Time, Place, Person Cognitive Function: Good Patient Appearance: Unkempt Mood: Withdrawn Affect: Mood Congruent Patient Behavior: Fatigued, Cooperative Speech Pattern: Appropriate Voice Loudness: Moderately Soft/Quiet Thought Process: Goal Oriented Thought Disorder: Not Present Hallucinations: Denies Suicidal Ideation: Denies Homicidal Ideation: Denies Insight/Judgement: Poor Sleep: Fair Appetite: Fair Muscle strength/Tone: Normal Gait/Station: Normal Psychiatric Findings - Problem List ([place] 1, 2,3) (1) Alcohol dependence with uncomplicated withdrawal Current Visit: Yes Status: Acute (2) Marijuana dependence Current Visit: Yes Status: Acute (3) Cocaine dependence Current Visit: Yes Status: Chronic Qualifiers: Substance use status: uncomplicated Qualified Code(s): F14.20 - Cocaine dependence, uncomplicated (4) Nicotine dependence Current Visit: Yes Status: Chronic Qualifiers: Nicotine product type: cigarettes Substance use status: uncomplicated Qualified Code(s): F17.210 - Nicotine dependence, cigarettes, uncomplicated (5) Substance induced mood disorder Current Visit: Yes Status: Acute - Initial Treatment Plan Initial Treatment Plan: Psychoeducation provided. Detoxification in progress. Pt. requesting to restart prozac. Prozac 20mg PO daily ordered. Benefits and side effects discussed. Verbal consent given. Will continue to monitor.
[2018-01-23] MEDS: chlordiazePOXIDE HCL 25 MG CAPSULE PO SCH ×2 (18:55→22:42)
[2018-01-23] MEDS ORDERED: MELATONIN 5 MG TABLETS PO PRN (22:00)
[2018-01-23] MEDS: THIAMINE HCL 100 MG TABLET (FP) PO SCH (22:42)
[2018-01-23] MEDS: CYCLOBENZAPRINE HCL 10 MG TABLET (FP) PO PRN (22:42)
[2018-01-24] MEDS: chlordiazePOXIDE HCL 25 MG CAPSULE PO SCH ×4 (05:49→22:40)
[2018-01-24] MEDS: MAG HYDROX/AL HYDROX/SIMETH 30 ML UNIT-DOSE CUP PO PRN ×2 (05:50→11:06)
--- NOTE | 2018-01-24 10:07 | PN ---
[facility] CIWA - CIWA Score Nausea/Vomitin-Mild Nausea/No Vomiting Muscle Tremors: 4-Moderate,w/Arms Extend Anxiety: 2 Agitation: 2 Paroxysmal Sweats: 1-Minimal Palms Moist Orientation: 0-Oriented Tacttile Disturbances: 1-Very Mild Itch/Numbness Auditory Disturbances: 0-None Visual Disturbances: 0-None Headache: 0-None Present CIWA-Ar Total Score: 11 BHS Progress Note (SOAP) Subjective: chill sweat tremor anxiety restlessness trouble sleep at night Objective: 01/24/18 10:08 Vital Signs Temperature 98 F 01/24/18 09:19 Pulse Rate 103 H 01/24/18 09:19 Respiratory Rate 18 01/24/18 09:19 Blood Pressure 141/96 01/24/18 09:19 O2 Sat by Pulse Oximetry (%) Laboratory Last Values Urine Color Ltyellow 01/23/18 14:00 Urine Appearance Slcloudy 01/23/18 14:00 Urine pH 7.0 (5.0-8.0) 01/23/18 14:00 Ur Specific [place] 1.014 (1.001-1.035) 01/23/18 14:00 Urine Protein Negative (NEGATIVE) 01/23/18 14:00 Urine Glucose (UA) Negative (NEGATIVE) 01/23/18 14:00 Urine Ketones Negative (NEGATIVE) 01/23/18 14:00 Urine Blood Negative (NEGATIVE) 01/23/18 14:00 Urine Nitrite Negative (NEGATIVE) 01/23/18 14:00 Urine Bilirubin Negative (<2.0 mg/dL) 01/23/18 14:00 Urine Urobilinogen Negative mg/dL (0.2-1.0) 01/23/18 14:00 Ur Leukocyte Esterase Negative (NEGATIVE) 01/23/18 14:00 HIV 1&2 Antibody Screen Negative 01/23/18 14:00 HIV P24 Antigen Negative 01/23/18 14:00 lab noted Assessment: 01/24/18 10:09 withdrawal sx Plan: continue detox
[2018-01-24 10:35] LABS: HEMATOCRIT 37.3 % (32.4-45.2); HEMOGLOBIN 11.8 GM/dL (10.7-15.3); MCH 26.1 pg (25.7-33.7); MCHC 31.8 g/dl (32.0-36.0); MEAN PLT VOLUME 7.8 fl (7.5-11.1); PLATELET COUNT 242 K/MM3 (134-434); RBC 4.55 M/mm3 (3.60-5.2); RDW 20.5 % (11.6-15.6); WHITE BLOOD COUNT 4.7 K/mm3 (4.0-10.0)
[2018-01-24 10:37] LABS: CHLORIDE 99 mmol/L (98-107); POTASSIUM 3.9 mmol/L (3.5-5.1); SODIUM 135 mmol/L (136-145)
[2018-01-24] MEDS: FLUoxetine HCL 20 MG CAPSULE (FP) PO SCH (11:04)
[2018-01-24] MEDS: hydrOXYzine PAMOATE 50 MG CAPSULE (FP) PO PRN (11:04)
[2018-01-24] MEDS: PRENATAL VITAMINS W/ FOLIC ACID TABLET (FP) PO SCH (11:04)
[2018-01-24] MEDS: ACETAMINOPHEN 325 MG TABLET (FP) PO PRN (11:06)
[2018-01-24 11:30] LABS: ALBUMIN 3.9 g/dl (3.4-5.0); ANION GAP 9 (8-16); BLOOD UREA NITROGEN 11 mg/dL (7-18); CALCIUM 9.2 mg/dL (8.5-10.1); CO2 27 mmol/L (21-32); GLUCOSE,RANDOM 95 mg/dL (74-106)
[2018-01-24 11:33] LABS: ALK PHOS 83 U/L (45-117); BILIRUBIN,TOTAL 0.6 mg/dL (0.2-1.0); CREATININE 0.6 mg/dL (0.55-1.02); SGOT/AST 38 U/L (15-37); SGPT/ALT 29 U/L (12-78); TOT PROT 7.8 g/dl (6.4-8.2)
[2018-01-24] MEDS: THIAMINE HCL 100 MG TABLET (FP) PO SCH (22:39)
[2018-01-24] MEDS: CYCLOBENZAPRINE HCL 10 MG TABLET (FP) PO PRN (22:40)
[2018-01-25] MEDS: chlordiazePOXIDE HCL 25 MG CAPSULE PO SCH ×2 (05:59→10:35)
[2018-01-25] MEDS: PRENATAL VITAMINS W/ FOLIC ACID TABLET (FP) PO SCH (10:34)
[2018-01-25] MEDS: FLUoxetine HCL 20 MG CAPSULE (FP) PO SCH (10:34)
--- NOTE | 2018-01-25 14:33 | PN ---
S CIWA - CIWA Score Nausea/Vomitin Muscle Tremors: 3 Anxiety: 3 Agitation: 3 Paroxysmal Sweats: 1-Minimal Palms Moist Orientation: 0-Oriented Tacttile Disturbances: 1-Very Mild Itch/Numbness Auditory Disturbances: 1-Very Mild Visual Disturbances: 0-None Headache: 2-Mild CIWA-Ar Total Score: 17 BHS Progress Note (SOAP) Subjective: alert,irritable,anxious,interrupted sleep,tremor Objective: 01/25/18 14:31 Vital Signs Temperature 95.9 F L 01/25/18 14:14 Pulse Rate 100 H 01/25/18 14:14 Respiratory Rate 16 01/25/18 14:14 Blood Pressure 134/94 01/25/18 14:14 O2 Sat by Pulse Oximetry (%) Laboratory Last Values WBC 4.7 K/mm3 (4.0-10.0) 01/24/18 06:00 RBC 4.55 M/mm3 (3.60-5.2) 01/24/18 06:00 Hgb 11.8 GM/dL (10.7-15.3) 01/24/18 06:00 Hct 37.3 % (32.4-45.2) 01/24/18 06:00 MCV 82.0 fl (80-96) 01/24/18 06:00 MCH 26.1 pg (25.7-33.7) 01/24/18 06:00 MCHC 31.8 g/dl (32.0-36.0) L 01/24/18 06:00 RDW 20.5 % (11.6-15.6) H 01/24/18 06:00 Plt Count 242 K/MM3 (134-434) D 01/24/18 06:00 MPV 7.8 fl (7.5-11.1) 01/24/18 06:00 Platelet Comment No clumping noted 01/24/18 06:00 Sodium 135 mmol/L (136-145) L 01/24/18 06:00 Potassium 3.9 mmol/L (3.5-5.1) 01/24/18 06:00 Chloride 99 mmol/L (98-107) 01/24/18 06:00 Carbon Dioxide 27 mmol/L (21-32) 01/24/18 06:00 Anion Gap 9 (8-16) 01/24/18 06:00 BUN 11 mg/dL (7-18) 01/24/18 06:00 Creatinine 0.6 mg/dL (0.55-1.02) 01/24/18 06:00 Creat Clearance w eGFR > 60 (>60) 01/24/18 06:00 Random Glucose 95 mg/dL (74-106) 01/24/18 06:00 Calcium 9.2 mg/dL (8.5-10.1) 01/24/18 06:00 Total Bilirubin 0.6 mg/dL (0.2-1.0) 01/24/18 06:00 AST 38 U/L (15-37) H 01/24/18 06:00 ALT 29 U/L (12-78) 01/24/18 06:00 Alkaline Phosphatase 83 U/L (45-117) 01/24/18 06:00 Total Protein 7.8 g/dl (6.4-8.2) 01/24/18 06:00 Albumin 3.9 g/dl (3.4-5.0) 01/24/18 06:00 Urine Color Ltyellow 01/23/18 14:00 Urine Appearance Slcloudy 01/23/18 14:00 Urine pH 7.0 (5.0-8.0) 01/23/18 14:00 Ur Specific [place] 1.014 (1.001-1.035) 01/23/18 14:00 Urine Protein Negative (NEGATIVE) 01/23/18 14:00 Urine Glucose (UA) Negative (NEGATIVE) 01/23/18 14:00 Urine Ketones Negative (NEGATIVE) 01/23/18 14:00 Urine Blood Negative (NEGATIVE) 01/23/18 14:00 Urine Nitrite Negative (NEGATIVE) 01/23/18 14:00 Urine Bilirubin Negative (<2.0 mg/dL) 01/23/18 14:00 Urine Urobilinogen Negative mg/dL (0.2-1.0) 01/23/18 14:00 Ur Leukocyte Esterase Negative (NEGATIVE) 01/23/18 14:00 RPR Titer Nonreactive (NONREACTIVE) 01/24/18 06:00 HIV 1&2 Antibody Screen Negative 01/23/18 14:00 HIV P24 Antigen Negative 01/23/18 14:00 Assessment: 01/25/18 14:32 withdrawal symptom Plan: continue detox,
[2018-01-25] MEDS: chlordiazePOXIDE 5 MG CAPSULE PO SCH ×2 (17:56→22:22)
[2018-01-25] MEDS: THIAMINE HCL 100 MG TABLET (FP) PO SCH (22:21)
[2018-01-25] MEDS: CYCLOBENZAPRINE HCL 10 MG TABLET (FP) PO PRN (22:22)
[2018-01-26] MEDS: chlordiazePOXIDE 5 MG CAPSULE PO SCH ×2 (05:57→10:36)
[2018-01-26] MEDS: ACETAMINOPHEN 325 MG TABLET (FP) PO PRN ×3 (05:58→23:15)
[2018-01-26] MEDS: PRENATAL VITAMINS W/ FOLIC ACID TABLET (FP) PO SCH (10:35)
[2018-01-26] MEDS: FLUoxetine HCL 20 MG CAPSULE (FP) PO SCH (10:36)
[2018-01-26] MEDS: hydrOXYzine PAMOATE 50 MG CAPSULE (FP) PO PRN ×2 (13:25→23:15)
--- NOTE | 2018-01-26 14:19 | PN ---
BHS Progress Note (SOAP) Subjective: alert,irritable,interrupted sleep Objective: 01/26/18 14:18 Vital Signs Temperature 96.4 F L 01/26/18 10:53 Pulse Rate 115 H 01/26/18 10:53 Respiratory Rate 18 01/26/18 10:53 Blood Pressure 120/78 01/26/18 10:53 O2 Sat by Pulse Oximetry (%) Assessment: 01/26/18 14:18 withdrawal symptom Plan: continue detox,discharge in am
[2018-01-26] MEDS: chlordiazePOXIDE HCL 10 MG CAPSULE PO SCH ×2 (17:21→23:15)
[2018-01-26] MEDS: CYCLOBENZAPRINE HCL 10 MG TABLET (FP) PO PRN (23:15)
[2018-01-26] MEDS: THIAMINE HCL 100 MG TABLET (FP) PO SCH (23:15)
[2018-01-27] MEDS: chlordiazePOXIDE HCL 10 MG CAPSULE PO SCH ×2 (05:28→10:02)
[2018-01-27 07:36] VITALS: BP 106/71; PULSE 97; TEMP 98.1
--- NOTE | 2018-01-27 09:40 | DS ---
[facility] Detox Discharge Summary Admission Date: 01/23/18 Discharge Date: 01/27/18 - History Present History: Alcohol Dependence Additional Comments: 48 years old female admitted 01/23/18 for alcohol withdrawal sx completed alcohol detox regimen tolerated well denies alcohol withdrawal sx alert oriented c 3 no acute distress aftercare revelation at [facility] patient agrees aftercare at [facility] brief motivational intervention on hypertension hepatitis c and addiction related health issues - Physical Exam Results Vital Signs: Vital Signs Temperature 98.1 F 01/27/18 07:35 Pulse Rate 97 H 01/27/18 07:35 Respiratory Rate 20 01/27/18 07:35 Blood Pressure 106/71 01/27/18 07:35 O2 Sat by Pulse Oximetry (%) Pertinent Admission Physical Exam Findings: alcohol withdrawal sx Vital Signs Temperature 98.1 F 01/27/18 07:35 Pulse Rate 97 H 01/27/18 07:35 Respiratory Rate 20 01/27/18 07:35 Blood Pressure 106/71 01/27/18 07:35 O2 Sat by Pulse Oximetry (%) Laboratory Last Values WBC 4.7 K/mm3 (4.0-10.0) 01/24/18 06:00 RBC 4.55 M/mm3 (3.60-5.2) 01/24/18 06:00 Hgb 11.8 GM/dL (10.7-15.3) 01/24/18 06:00 Hct 37.3 % (32.4-45.2) 01/24/18 06:00 MCV 82.0 fl (80-96) 01/24/18 06:00 MCH 26.1 pg (25.7-33.7) 01/24/18 06:00 MCHC 31.8 g/dl (32.0-36.0) L 01/24/18 06:00 RDW 20.5 % (11.6-15.6) H 01/24/18 06:00 Plt Count 242 K/MM3 (134-434) D 01/24/18 06:00 MPV 7.8 fl (7.5-11.1) 01/24/18 06:00 Platelet Comment No clumping noted 01/24/18 06:00 Sodium 135 mmol/L (136-145) L 01/24/18 06:00 Potassium 3.9 mmol/L (3.5-5.1) 01/24/18 06:00 Chloride 99 mmol/L (98-107) 01/24/18 06:00 Carbon Dioxide 27 mmol/L (21-32) 01/24/18 06:00 Anion Gap 9 (8-16) 01/24/18 06:00 BUN 11 mg/dL (7-18) 01/24/18 06:00 Creatinine 0.6 mg/dL (0.55-1.02) 01/24/18 06:00 Creat Clearance w eGFR > 60 (>60) 01/24/18 06:00 Random Glucose 95 mg/dL (74-106) 01/24/18 06:00 Calcium 9.2 mg/dL (8.5-10.1) 01/24/18 06:00 Total Bilirubin 0.6 mg/dL (0.2-1.0) 01/24/18 06:00 AST 38 U/L (15-37) H 01/24/18 06:00 ALT 29 U/L (12-78) 01/24/18 06:00 Alkaline Phosphatase 83 U/L (45-117) 01/24/18 06:00 Total Protein 7.8 g/dl (6.4-8.2) 01/24/18 06:00 Albumin 3.9 g/dl (3.4-5.0) 01/24/18 06:00 Urine Color Ltyellow 01/23/18 14:00 Urine Appearance Slcloudy 01/23/18 14:00 Urine pH 7.0 (5.0-8.0) 01/23/18 14:00 Ur Specific [place] 1.014 (1.001-1.035) 01/23/18 14:00 Urine Protein Negative (NEGATIVE) 01/23/18 14:00 Urine Glucose (UA) Negative (NEGATIVE) 01/23/18 14:00 Urine Ketones Negative (NEGATIVE) 01/23/18 14:00 Urine Blood Negative (NEGATIVE) 01/23/18 14:00 Urine Nitrite Negative (NEGATIVE) 01/23/18 14:00 Urine Bilirubin Negative (<2.0 mg/dL) 01/23/18 14:00 Urine Urobilinogen Negative mg/dL (0.2-1.0) 01/23/18 14:00 Ur Leukocyte Esterase Negative (NEGATIVE) 01/23/18 14:00 RPR Titer Nonreactive (NONREACTIVE) 01/24/18 06:00 HIV 1&2 Antibody Screen Negative 01/23/18 14:00 HIV P24 Antigen Negative 01/23/18 14:00 lab noted - Treatment Hospital Course: Detox Protocol Followed, Detoxed Safely, Responded well, Discharged Condition Good, Rehab Referral Accepted Patient has Accepted a Rehab Referral to: [facility] - Medication Discharge Medications: Ambulatory Orders NK [No Known Home Medication] 01/23/18 - Diagnosis (1) Hypertension Current Visit: Yes Status: Chronic Qualifiers: Hypertension type: essential hypertension Qualified Code(s): I10 - Essential (primary) hypertension (2) Hepatitis C Current Visit: No Status: Chronic Qualifiers: Viral hepatitis chronicity: chronic Hepatic coma status: without hepatic coma Qualified Code(s): B18.2 - Chronic viral hepatitis C (3) Alcohol dependence with uncomplicated withdrawal Current Visit: Yes Status: Acute (4) Nicotine dependence Current Visit: Yes Status: Acute Qualifiers: Nicotine product type: cigarettes Substance use status: in withdrawal Qualified Code(s): F17.213 - Nicotine dependence, cigarettes, with withdrawal - AMA Did Patient Leave Against Medical Advice: No
[2018-01-27] MEDS: FLUoxetine HCL 20 MG CAPSULE (FP) PO SCH (10:02)
[2018-01-27] MEDS: PRENATAL VITAMINS W/ FOLIC ACID TABLET (FP) PO SCH (10:02)
[2018-01-27] MEDS: ACETAMINOPHEN 325 MG TABLET (FP) PO PRN (10:03)
== END 2018-01-27 10:00 | disposition other institution (70) | DRG 774 ==
LOC: YASAS 10:18 → Y6N 13:01
PROVIDERS: ADMIT Surgery; ATTEND Surgery
PROC: HZ2ZZZZ Detoxification Services for Substance Abuse Treatment (ICD-10-PCS; principal; 2018-01-23)
DX: F10.230 Alcohol dependence with withdrawal, uncomplicated (principal); F14.20 Cocaine dependence, uncomplicated; F12.20 Cannabis dependence, uncomplicated; F17.213 Nicotine dependence, cigarettes, with withdrawal; F19.24 Other psychoactive substance dependence with psychoactive substance-induced mood disorder; F32.9 Major depressive disorder, single episode, unspecified; F41.9 Anxiety disorder, unspecified; I10 Essential (primary) hypertension; B18.2 Chronic viral hepatitis C; Z91.14 Patient's other noncompliance with medication regimen; Z91.5 Personal history of self-harm
CPT/HCPCS: 36415; 80053; 81003; 85027; 86593; 87389; 93005; 93010

== ENCOUNTER 2018-01-27 10:22 | Inpatient (IN) | payer OTHER ==
[2018-01-27] MEDS ORDERED: MAGNESIUM HYDROX 2400MG/30ML ORAL SUSPENSION 30 ML CUP PO PRN (10:46)
[2018-01-27] MEDS ORDERED: MENTHOL/PHENOL 1 EACH UD MM PRN (10:46)
[2018-01-27] MEDS ORDERED: IBUPROFEN 400 MG TABLET (FP) PO PRN (10:46)
[2018-01-27] MEDS ORDERED: MAGNESIUM CITRATE 300 ML BOTTLE PO PRN (10:46)
[2018-01-27] MEDS ORDERED: hydrOXYzine PAMOATE 50 MG CAPSULE (FP) PO PRN (10:46)
[2018-01-27] MEDS ORDERED: LOPERAMIDE HCL 2 MG CAPSULE PO PRN (10:46)
[2018-01-27] MEDS ORDERED: MAG HYDROX/AL HYDROX/SIMETH 30 ML UNIT-DOSE CUP PO PRN (10:46)
[2018-01-27] MEDS ORDERED: guaiFENesin/D-METHORPHAN HB 10 ML UNIT-DOSE CUPS PO PRN (10:46)
[2018-01-27] MEDS ORDERED: P-EPHED 60MG/TRIPROLIDI 2.5MG TABLET PO PRN (10:46)
--- NOTE | 2018-01-27 10:46 | HP ---
[facility] Rehab Assess/Revision - Admission History Admitted to Rehab from: [facility] Date of Admission to Rehab: 01/27/18 - Vital signs Vital Signs: Vital Signs Period Temp Pulse Resp BP Sys/King Pulse Ox Last 24 Hr 97.3 F 111 16 107/76 - Findings Detox History & Physical reviewed: Yes Concur with findings: Yes Comments/Additional Findings: for rehab as protocol Inpatient Rehab Admission - Initial Determination Are CD services needed?: Yes Free of communicable disease: Yes Not in need of hospitalization: Yes - Rehab Admission Criteria Previous failed treatment: Yes Poor recovery environment: Yes Comorbidities: Yes Lacks judgement: No Patient is meeting Inpatient Rehab admission criteria:: Yes
--- NOTE | 2018-01-27 12:07 | PN ---
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 From detox unit [address] [place] [address].Asked for renewal of prozac. Chart reviewed. filing clerk Jarret's note : appreciated. Patient is currently on prozac 20 mg po daily. Today's dose already dispensed prior to arrival to [facility]. Plan : Prozac 20 mg po daily. Ordered.Start date : 01/28/18.
[2018-01-27] MEDS: THIAMINE HCL 100 MG TABLET (FP) PO SCH (21:08)
[2018-01-27] MEDS ORDERED: MELATONIN 5 MG TABLETS PO PRN (22:00)
[2018-01-28] MEDS: PRENATAL VITAMINS W/ FOLIC ACID TABLET (FP) PO SCH (10:02)
[2018-01-28] MEDS: FLUoxetine HCL 20 MG CAPSULE (FP) PO SCH (10:02)
--- NOTE | 2018-01-28 10:41 | HP ---
Psychiatrist Admission - Data Date of interview: 01/28/18 Admission source: [address] [place] [address] Identifying data: This is the first admission to [address] [place] [address] for this 48 years old single mother of 4,undomiciled,unemployed, no financial support. Medical History: Anemia,HTN,Hep C. Psychiatric History: Patient is poor historian.She reports first contact with psychiatrist at 15 years old when she was admitted to [facility] due to suicidal attempt(DOD).Patient was dx xwith MDD,Bipolar disorder,then with Schizoaffective disorder.she reports 2 more psychiatric hospitalizatons.Patient has poor comliance with medications,treatment.She was under psychiatric care at one of the OPD clinic in the [place],then was on Prozac while in Detox twice on [address] [place] [address].Patient reports she was on Topamax 25 mg po bid and Prozac 20 mg po daily(restarted while in detox). Physical/Sexual Abuse/Trauma History: Denies. Vital Signs: Vital Signs - 24 hr 01/28/18 01/28/18 01/28/18 00:30 03:30 06:35 Temperature 97.5 F L Pulse Rate 90 Respiratory 20 18 16 Rate Blood Pressure 112/75 Allergies/Adverse Reactions: Allergies Allergy/AdvReac Type Severity Reaction Status Date / Time No Known Allergies Allergy Verified 01/23/18 11:57 Date of last physical exam: 01/23/18 Concur with the findings of this exam: Yes - Substance Abuse/Tx History Hx Alcohol Use: Yes (reports drinking since 17 yo,5 pints of vodka ) Hx Substance Use: Yes (cocaine since 35,2 bags daily,marjuana since school age) Substance Use Type: Alcohol, Cocaine, Marijuana Hx Substance Use Treatment: Yes (multiple previous detox treatments) Mental Status Exam - Mental Status Exam Alert and Oriented to: Time, Place, Person Cognitive Function: Grossly Intact Patient Appearance: Well Groomed Mood: Anxious Affect: Mood Congruent, Labile Patient Behavior: Cooperative Speech Pattern: Clear Voice Loudness: Normal Thought Process: Goal Oriented Thought Disorder: Not Present Hallucinations: Denies Suicidal Ideation: Denies Homicidal Ideation: Denies Insight/Judgement: Fair Sleep: Fair Muscle strength/Tone: Normal Gait/Station: Normal Psychiatric Findings - Problem List ([place] 1, 2,3) (1) Marijuana dependence Current Visit: Yes Status: Chronic (2) Nicotine dependence Current Visit: Yes Status: Chronic Qualifiers: Nicotine product type: cigarettes Substance use status: in withdrawal Qualified Code(s): F17.213 - Nicotine dependence, cigarettes, with withdrawal (3) Substance induced mood disorder Current Visit: Yes Status: Acute (4) Cocaine dependence Current Visit: Yes Status: Chronic Qualifiers: Substance use status: uncomplicated Qualified Code(s): F14.20 - Cocaine dependence, uncomplicated (5) Hepatitis C Current Visit: Yes Status: Chronic Qualifiers: Viral hepatitis chronicity: chronic Hepatic coma status: without hepatic coma Qualified Code(s): B18.2 - Chronic viral hepatitis C (6) Hypertension Current Visit: Yes Status: Chronic Qualifiers: Hypertension type: essential hypertension Qualified Code(s): I10 - Essential (primary) hypertension - Initial Treatment Plan Initial Treatment Plan: Continue Prozac 20 mg po daily.Will monitor progress.
[2018-01-28] MEDS: TOPIRAMATE 25 MG TABLET (FP) PO SCH (21:12)
[2018-01-28] MEDS: THIAMINE HCL 100 MG TABLET (FP) PO SCH (21:12)
[2018-01-28] MEDS: ACETAMINOPHEN 325 MG TABLET (FP) PO PRN (21:13)
[2018-01-29] MEDS: PRENATAL VITAMINS W/ FOLIC ACID TABLET (FP) PO SCH (09:25)
[2018-01-29] MEDS: FLUoxetine HCL 20 MG CAPSULE (FP) PO SCH (09:25)
[2018-01-29] MEDS: TOPIRAMATE 25 MG TABLET (FP) PO SCH ×2 (09:25→21:20)
[2018-01-29] MEDS: THIAMINE HCL 100 MG TABLET (FP) PO SCH (21:20)
[2018-01-30 09:36] VITALS: PULSE 96
[2018-01-30] MEDS: TOPIRAMATE 25 MG TABLET (FP) PO SCH ×2 (09:46→21:11)
[2018-01-30] MEDS: PRENATAL VITAMINS W/ FOLIC ACID TABLET (FP) PO SCH (09:46)
[2018-01-30] MEDS: FLUoxetine HCL 20 MG CAPSULE (FP) PO SCH (09:46)
[2018-01-30] MEDS: THIAMINE HCL 100 MG TABLET (FP) PO SCH (21:11)
[2018-01-30] MEDS: ACETAMINOPHEN 325 MG TABLET (FP) PO PRN (21:13)
[2018-01-31] MEDS: TOPIRAMATE 25 MG TABLET (FP) PO SCH ×2 (09:44→21:07)
[2018-01-31] MEDS: PRENATAL VITAMINS W/ FOLIC ACID TABLET (FP) PO SCH (09:44)
[2018-01-31] MEDS: FLUoxetine HCL 20 MG CAPSULE (FP) PO SCH (09:44)
[2018-01-31] MEDS: THIAMINE HCL 100 MG TABLET (FP) PO SCH (21:07)
[2018-02-01 06:43] VITALS: BP 101/71; TEMP 97.8
--- NOTE | 2018-02-01 09:27 | PN ---
Psychiatric Progress Note Vital Signs: Vital Signs Period Temp Pulse Resp BP Sys/King Pulse Ox Last 24 Hr 97.8 F 96 17-18 101/71 Date of Session: 02/01/18 Chief Complaint:: Discharge visit HPI: Patient addressed Cannabis,Alcohol and Cocaine dependence comorbid with Substance induced mood disorder. ROS: Hep C ,HTN. Current Medications: Active Medications Generic Name Dose Route Start Last Admin Trade Name Freq PRN Reason Stop Dose Admin Acetaminophen 650 mg 01/27/18 10:46 01/30/18 21:13 Tylenol - PO 650 mg Q4H PRN Administration FEVER Al Hydroxide/Mg Hydroxide 30 ml 01/27/18 10:46 Mylanta Oral Suspension - PO Q6H PRN DYSPEPSIA Eucalyptus/Menthol/Phenol/Sorbitol 1 each 01/27/18 10:46 Cepastat Lozenge - MM Q4H PRN SORE THROAT Fluoxetine HCl 20 mg 01/28/18 10:00 01/31/18 09:44 Prozac - PO 20 mg DAILY TAMY Administration Guaifenesin 10 ml 01/27/18 10:46 Robitussin Dm - PO Q6H PRN COUGH Hydroxyzine Pamoate 50 mg 01/27/18 10:46 01/27/18 21:09 Vistaril - PO 50 mg Q4H PRN Administration AGITATION Ibuprofen 400 mg 01/27/18 10:46 01/27/18 21:10 Motrin - PO 400 mg Q6H PRN Administration Pain Level 4-6 Loperamide HCl 4 mg 01/27/18 10:46 Imodium - PO Q6H PRN DIARRHEA Magnesium Citrate 300 ml 01/27/18 10:46 Citroma - PO Q48H PRN CONSTIPATION Magnesium Hydroxide 30 ml 01/27/18 10:46 Milk Of Magnesia - PO DAILY PRN CONSTIPATION Melatonin 5 mg 01/27/18 22:00 01/29/18 21:20 Melatonin PO 5 mg HS PRN Administration INSOMNIA Multivit/Folic Acid/Iron 1 tab 01/28/18 10:00 01/31/18 09:44 Vitamins (Sjr) - PO 1 tab DAILY TAMY Administration Pseudoephedrine/Triprolidine 1 combo 01/27/18 10:46 Actifed - PO TID PRN NASAL CONGESTION Thiamine HCl 100 mg 01/27/18 22:00 01/31/18 21:07 Vitamin B1 - PO 100 mg HS TAMY Administration Topiramate 25 mg 01/28/18 22:00 01/31/18 21:07 Topamax - PO 25 mg BID TAMY Administration Current Side Effect: No Lab tests ordered: No Lab tests reviewed: Yes Provider note:: Patient completed this program today.She has met her treatment goals and will continue to address her issues on Outpatient basis at [facility].Patient reports finding that current medications:prozac 20 mg po daily and Topamax 25 mg po bid help to cope with depression,mood instability.Scripts for 30 days provided. Supportive therapy provided focusing on relapse prevention. Patient is stable for discharge today. Total face to face time:: 30 Mental Status Exam - Mental Status Exam Alert and Oriented to: Time, Place, Person Cognitive Function: Grossly Intact Patient Appearance: Well Groomed Mood: Hopeful, Euthymic Affect: Appropriate, Mood Congruent Patient Behavior: Cooperative Speech Pattern: Clear Voice Loudness: Normal Thought Process: Goal Oriented Thought Disorder: Not Present Hallucinations: Denies Suicidal Ideation: Denies Homicidal Ideation: Denies Insight/Judgement: Fair Sleep: Fair Appetite: Good Muscle strength/Tone: Normal Gait/Station: Normal Psychiatric Treatment Plan - Problem List (1) Marijuana dependence Current Visit: Yes (2) Nicotine dependence Current Visit: Yes Qualifiers: Nicotine product type: cigarettes Substance use status: in withdrawal Qualified Code(s): F17.213 - Nicotine dependence, cigarettes, with withdrawal (3) Substance induced mood disorder Current Visit: Yes (4) Cocaine dependence Current Visit: Yes Qualifiers: Substance use status: uncomplicated Qualified Code(s): F14.20 - Cocaine dependence, uncomplicated (5) Hepatitis C Current Visit: Yes Qualifiers: Viral hepatitis chronicity: chronic Hepatic coma status: without hepatic coma Qualified Code(s): B18.2 - Chronic viral hepatitis C (6) Hypertension Current Visit: Yes Qualifiers: Hypertension type: essential hypertension Qualified Code(s): I10 - Essential (primary) hypertension (7) Alcohol dependence Current Visit: Yes
[2018-02-01] MEDS: PRENATAL VITAMINS W/ FOLIC ACID TABLET (FP) PO SCH (09:29)
[2018-02-01] MEDS: TOPIRAMATE 25 MG TABLET (FP) PO SCH (09:29)
[2018-02-01] MEDS: FLUoxetine HCL 20 MG CAPSULE (FP) PO SCH (09:30)
[2018-02-01] MEDS ORDERED: PT OWN MED DRAWER 7, Y5N ONE ×2 (09:32→09:34)
== END 2018-02-01 09:52 | disposition home or self-care (01) | DRG 772 ==
LOC: YASAS 10:22 → Y3E 10:24
PROVIDERS: ADMIT Psychiatry & Neurology Psychiatry; ATTEND Psychiatry & Neurology Psychiatry
PROC: HZ42ZZZ Group Counseling for Substance Abuse Treatment, Cognitive-Behavioral (ICD-10-PCS; principal; 2018-01-27)
DX: F10.20 Alcohol dependence, uncomplicated (principal); F14.20 Cocaine dependence, uncomplicated; F12.20 Cannabis dependence, uncomplicated; F17.213 Nicotine dependence, cigarettes, with withdrawal; F19.24 Other psychoactive substance dependence with psychoactive substance-induced mood disorder; I10 Essential (primary) hypertension; B18.2 Chronic viral hepatitis C

== ENCOUNTER 2020-05-18 10:49 | Inpatient (IN) | payer OTHER ==
--- NOTE | 2020-05-18 11:03 | BHS.RME ---
Substance Use & Tx History - Substance Use History Alcohol Substance amount: 5 pints vodka + beers Frequency of use: Daily Substance route: Oral Date of Last Use: 05/18/20 (started age 17) Cocaine-Crack Substance amount: 2-3 bags Frequency of use: Daily Substance route: Smoking Date of Last Use: 05/18/20 (started age 35) Marijuana/Hashish Substance amount: 2-3 drags Frequency of use: Daily Substance route: Smoking Date of Last Use: 05/18/20 (started age 13) Nicotine Substance amount: 6 ciggs Frequency of use: Daily Substance route: Smoking Date of Last Use: 05/18/20 (started age 20) - Last Treatment Date of last treatment: 2017 Treatment type: Substance Use Disorder (DIANE) Where was last treatment: Rehab Physical/Psych/Mental Status - Behavior General Behavior: Increased activity (restlessness, agitation) Eye Contact: Normal - Cooperativeness Cooperativeness: Cooperative - Thinking Thought Processes: Tight, Logical, Goal Directed - Physical Health Problems Is patient presently having any pain?: No Does patient presently have any injuries (include location): No Does patient currently have a fever: No Is patient : No CIWA Nausea/Vomitin Muscle Tremors: 3 Anxiety: 3 Agitation: 3 Paroxysmal Sweats: 4-Forehead w/Sweat Beads Orientation: 3-Disoriented Date>2 days Tacttile Disturbances: 1-Very Mild Itch/Numbness Auditory Disturbances: 1-Very Mild Visual Disturbances: 1-Very Mild Sensitivity Headache: 3-Moderate CIWA-Ar Total Score: 25
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
[2020-05-18 11:26] VITALS: BMI 30.2
[2020-05-18] MEDS ORDERED: chlordiazePOXIDE HCL 25 MG CAPSULE PO PRN (11:31)
[2020-05-18] MEDS ORDERED: ACETAMINOPHEN 325 MG TABLET (FP) PO PRN ×2 (11:31)
[2020-05-18] MEDS ORDERED: ONDANSETRON *ODT* 4 MG TABLET SL PRN (11:31)
[2020-05-18] MEDS ORDERED: NICOTINE POLACRILEX 2 MG GUM BUC PRN (11:31)
[2020-05-18] MEDS ORDERED: MAG HYDROX/AL HYDROX/SIMETH 30 ML UNIT-DOSE CUP PO PRN (11:31)
[2020-05-18] MEDS ORDERED: MAGNESIUM HYDROX 2400MG/30ML ORAL SUSPENSION 30 ML CUP PO PRN (11:31)
[2020-05-18] MEDS ORDERED: MAGNESIUM CITRATE 300 ML BOTTLE PO PRN (11:31)
[2020-05-18] MEDS ORDERED: MENTHOL/PHENOL 1 EACH UD MM PRN (11:31)
[2020-05-18] MEDS ORDERED: BISMUTH SUBSALICYLATE 262 MG/15 ML BTL PO PRN (11:31)
[2020-05-18] MEDS ORDERED: METHOCARBAMOL 500 MG TABLET PO PRN (11:31)
--- OUTSIDE RECORDS SUMMARY | 2020-05-18 12:08 | XMS ---
:1970 Author Organization [facility] Support Name Relationship Address Phone UE Unavailable Unavailable Unavailable MICHAEL DEVINE SON [address] [address] [place] [address] Re-disclosure Warning The records that you are about to access may contain information from federally- assisted alcohol or drug abuse programs. If such information is present, then the following federally mandated warning applies: This information has been disclosed to you from records protected by federal confidentiality rules (42 CFR part 2). The federal rules prohibit you from making any further disclosure of this information unless further disclosure is expressly permitted by the written consent of the person to whom it pertains or as otherwise permitted by 42 CFR part 2. A general authorization for the release of medical or other information is NOT sufficient for this purpose. The Federal rules restrict any use of the information to criminally investigate or prosecute any alcohol or drug abuse patient.The records that you are about to access may contain highly sensitive health information, the redisclosure of which is protected by Article 27-F of the [facility] Public Health law. If you continue you may haveaccess to information: Regarding HIV / AIDS; Provided by facilities licensed or operated by the [facility] Office of Mental Health; or Provided by the [facility] Office for People With Developmental Disabilities. If such information is present, then the following [facility] mandated warning applies: This information has been disclosed to you from confidential records which are protected by state law. State law prohibits you from making any further disclosure of this information without the specific written consent of the person to whom it pertains, or as otherwise permitted by law. Any unauthorized further disclosure in violation of state law may result in a fine or residential sentence or both. A general authorization for the release of medical or other information is NOT sufficient authorization for further disclosure. Insurance Providers Payer name Policy type Policy ID Covered Covered libertarian's Policy P roel / Coverage libertarian ID relationship to [facility] ormation type [employer] [id number] SP [id number] FIRST
[2020-05-18] MEDS: IBUPROFEN 400 MG TABLET (FP) PO PRN ×2 (12:25→18:20)
[2020-05-18 12:56] LABS: HEMATOCRIT 34.4 % (32.4-45.2); HEMOGLOBIN 10.7 GM/dL (10.7-15.3); MCH 24.3 pg (25.7-33.7); MCHC 31.1 g/dl (32.0-36.0); MEAN CELL VOLUME 78.1 fl (80-96); MEAN PLT VOLUME 7.1 fl (7.5-11.1); PLATELET COUNT 226 K/MM3 (134-434); RBC 4.41 M/mm3 (3.60-5.2); RDW 21.1 % (11.6-15.6); WHITE BLOOD COUNT 4.7 K/mm3 (4.0-10.0)
[2020-05-18 13:11] LABS: ALBUMIN 4.1 g/dl (3.4-5.0); BILIRUBIN,TOTAL 0.4 mg/dL (0.2-1); BLOOD UREA NITROGEN 10.1 mg/dL (7-18); CREATININE 0.7 mg/dL (0.55-1.3); POTASSIUM 3.8 mmol/L (3.5-5.1); TOT PROT 8.4 g/dl (6.4-8.2)
[2020-05-18] MEDS: hydrOXYzine PAMOATE 25 MG CAPSULE (FP) PO SCH ×3 (15:03→22:38)
[2020-05-18 17:30] LABS: PH,URINE 5.5 (5.0-8.0); URINE APPEARANCE CLEAR; URINE BILIRUBIN NEGATIVE (NEGATIVE); URINE COLOR YELLOW; URINE GLUCOSE (UA) NEGATIVE (NEGATIVE); URINE KETONE TRACE (NEGATIVE); URINE LEUK ESTERASE NEGATIVE (NEGATIVE); URINE NITRITE NEGATIVE (NEGATIVE); URINE PROTEIN TRACE (NEGATIVE)
[2020-05-18] MEDS: chlordiazePOXIDE HCL 25 MG CAPSULE PO SCH ×2 (18:18→22:38)
[2020-05-18] MEDS: THIAMINE HCL 100 MG TABLET (FP) PO SCH (22:38)
[2020-05-18] MEDS: MELATONIN 5 MG TABLETS PO SCH (22:38)
[2020-05-19] MEDS: chlordiazePOXIDE HCL 25 MG CAPSULE PO SCH ×4 (06:15→22:41)
[2020-05-19] MEDS: hydrOXYzine PAMOATE 25 MG CAPSULE (FP) PO SCH (06:16)
[2020-05-19] MEDS ORDERED: hydrOXYzine PAMOATE 25 MG CAPSULE (FP) PO PRN (08:15)
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
[2020-05-19] MEDS: NICOTINE 7 MG/24 HOURS TOPICAL PATCH TD SCH (10:37)
[2020-05-19] MEDS: PRENATAL VITAMINS W/ FOLIC ACID TABLET (FP) PO SCH (10:37)
[2020-05-19] MEDS ORDERED: PNEUMOC 13-VAL CONJ-DIP CRM/PF 0.5 ML DISP.SYRIN IM ONE (12:00)
[2020-05-19] MEDS ORDERED: FLU VACCINE (FLULAVAL) PF 60 MCG/0.5 ML SYRINGE 2020-2021 IM ONE (12:00)
--- NOTE | 2020-05-19 13:31 | PN ---
[facility] CIWA - CIWA Score Nausea/Vomitin-No Nausea/No Vomiting Muscle Tremors: 2 Anxiety: 2 Agitation: 3 Paroxysmal Sweats: 3 Orientation: 0-Oriented Tacttile Disturbances: 0-None Auditory Disturbances: 0-None Visual Disturbances: 0-None Headache: 0-None Present CIWA-Ar Total Score: 10 S Progress Note (SOAP) Subjective: sweats body aches restless interrupted sleep agitation diarrhea low back pain nausea Objective: 05/19/20 13:29 Vital Signs Temperature 97.3 F L 05/19/20 08:55 Pulse Rate 91 H 05/19/20 08:55 Respiratory Rate 18 05/19/20 08:55 Blood Pressure 114/82 05/19/20 08:55 O2 Sat by Pulse Oximetry (%) 96 05/19/20 06:16 Laboratory Tests 05/18/20 05/18/20 05/18/20 11:45 11:45 11:45 WBC 4.7 RBC 4.41 Hgb 10.7 Hct 34.4 MCV 78.1 L MCH 24.3 L MCHC 31.1 L RDW 21.1 H Plt Count 226 MPV 7.1 L Sodium 140 Potassium 3.8 Chloride 105 Carbon Dioxide 27 Anion Gap 8 BUN 10.1 Creatinine 0.7 Est GFR (CKD-EPI)AfAm 117.91 Est GFR (CKD-EPI)NonAf 101.74 Random Glucose 137 H Calcium 9.0 Total Bilirubin 0.4 AST 76 H ALT 53 Alkaline Phosphatase 94 Total Protein 8.4 H Albumin 4.1 Urine Color Urine Appearance Urine pH Ur Specific [place] Urine Protein Urine Glucose (UA) Urine Ketones Urine Blood Urine Nitrite Urine Bilirubin Urine Urobilinogen Ur Leukocyte Esterase POC Urine HCG, Qual Syphilis Serology Non-reactive COVID-19 (LIBAN) 05/18/20 05/18/20 05/18/20 13:10 15:32 15:32 WBC RBC Hgb Hct MCV MCH MCHC RDW Plt Count MPV Sodium Potassium Chloride Carbon Dioxide Anion Gap BUN Creatinine Est GFR (CKD-EPI)AfAm Est GFR (CKD-EPI)NonAf Random Glucose Calcium Total Bilirubin AST ALT Alkaline Phosphatase Total Protein Albumin Urine Color Yellow Urine Appearance Clear Urine pH 5.5 D Ur Specific [place] 1.031 Urine Protein Trace Urine Glucose (UA) Negative Urine Ketones Trace H Urine Blood Negative Urine Nitrite Negative Urine Bilirubin Negative Urine Urobilinogen 1.0 Ur Leukocyte Esterase Negative POC Urine HCG, Qual Negative Syphilis Serology COVID-19 (LIBAN) Not detected labs noted aaox3 ambulating no acute distress Assessment: 05/19/20 13:30 withdrawals Plan: continue detox increase fluids motrin/tylenol prn lidocaine patch zofran prn
[2020-05-19] MEDS: LIDOCAINE 5% TOPICAL PATCH TP SCH (14:26)
[2020-05-19] MEDS ORDERED: QUEtiapine FUMARATE 100 MG TABLET (FP) PO SCH (22:00)
[2020-05-19] MEDS ORDERED: LIDOCAINE PATCH REMOVAL MC SCH (22:00)
[2020-05-19] MEDS: THIAMINE HCL 100 MG TABLET (FP) PO SCH (22:41)
[2020-05-19] MEDS: MELATONIN 5 MG TABLETS PO SCH (22:42)
[2020-05-20] MEDS: chlordiazePOXIDE HCL 25 MG CAPSULE PO SCH ×2 (06:14→10:45)
[2020-05-20] MEDS: IBUPROFEN 400 MG TABLET (FP) PO PRN (06:16)
[2020-05-20] MEDS: NICOTINE 7 MG/24 HOURS TOPICAL PATCH TD SCH (10:43)
[2020-05-20] MEDS: LIDOCAINE 5% TOPICAL PATCH TP SCH (10:43)
[2020-05-20] MEDS: PRENATAL VITAMINS W/ FOLIC ACID TABLET (FP) PO SCH (10:43)
[2020-05-20 13:42] VITALS: BP 111/61; PULSE 105; TEMP 97.1
--- NOTE | 2020-05-20 13:56 | PN ---
S CIWA - CIWA Score Nausea/Vomitin-No Nausea/No Vomiting Muscle Tremors: 2 Anxiety: 2 Agitation: 2 Paroxysmal Sweats: 1-Minimal Palms Moist Orientation: 0-Oriented Tacttile Disturbances: 0-None Auditory Disturbances: 0-None Visual Disturbances: 0-None Headache: 0-None Present CIWA-Ar Total Score: 7 BHS Progress Note (SOAP) Subjective: sweats interrupted sleep agitation body aches Objective: 05/20/20 13:55 Vital Signs Temperature 97.1 F L 05/20/20 12:44 Pulse Rate 105 H 05/20/20 12:44 Respiratory Rate 18 05/20/20 12:44 Blood Pressure 111/61 05/20/20 12:44 O2 Sat by Pulse Oximetry (%) 95 05/20/20 12:44 Laboratory Tests 05/18/20 05/18/20 05/18/20 11:45 11:45 11:45 WBC 4.7 RBC 4.41 Hgb 10.7 Hct 34.4 MCV 78.1 L MCH 24.3 L MCHC 31.1 L RDW 21.1 H Plt Count 226 MPV 7.1 L Sodium 140 Potassium 3.8 Chloride 105 Carbon Dioxide 27 Anion Gap 8 BUN 10.1 Creatinine 0.7 Est GFR (CKD-EPI)AfAm 117.91 Est GFR (CKD-EPI)NonAf 101.74 Random Glucose 137 H Calcium 9.0 Total Bilirubin 0.4 AST 76 H ALT 53 Alkaline Phosphatase 94 Total Protein 8.4 H Albumin 4.1 Urine Color Urine Appearance Urine pH Ur Specific [place] Urine Protein Urine Glucose (UA) Urine Ketones Urine Blood Urine Nitrite Urine Bilirubin Urine Urobilinogen Ur Leukocyte Esterase POC Urine HCG, Qual Syphilis Serology Non-reactive COVID-19 (LIBAN) 05/18/20 05/18/20 05/18/20 13:10 15:32 15:32 WBC RBC Hgb Hct MCV MCH MCHC RDW Plt Count MPV Sodium Potassium Chloride Carbon Dioxide Anion Gap BUN Creatinine Est GFR (CKD-EPI)AfAm Est GFR (CKD-EPI)NonAf Random Glucose Calcium Total Bilirubin AST ALT Alkaline Phosphatase Total Protein Albumin Urine Color Yellow Urine Appearance Clear Urine pH 5.5 D Ur Specific [place] 1.031 Urine Protein Trace Urine Glucose (UA) Negative Urine Ketones Trace H Urine Blood Negative Urine Nitrite Negative Urine Bilirubin Negative Urine Urobilinogen 1.0 Ur Leukocyte Esterase Negative POC Urine HCG, Qual Negative Syphilis Serology COVID-19 (LIBAN) Not detected labs noted lying in bed no acute distress Assessment: 05/20/20 13:56 withdrawals Plan: continue detox
--- NOTE | 2020-05-20 14:48 | PN ---
S Progress Note Note: pt did not want to stay and wants to leave. pt did not want to elaborate on reasons for leaving. pt was made aware of risks of relapse, seizures, DT, OD and/or loss. pt chose to sign out AMA.
--- NOTE | 2020-05-20 14:50 | DS ---
[facility] Detox Discharge Summary Admission Date: 05/18/20 - History Present History: Alcohol Dependence, Cannabis Dependence, Cocaine Dependence - Physical Exam Results Vital Signs: Vital Signs Temperature 97.1 F L 05/20/20 12:44 Pulse Rate 105 H 05/20/20 12:44 Respiratory Rate 18 05/20/20 12:44 Blood Pressure 111/61 05/20/20 12:44 O2 Sat by Pulse Oximetry (%) 95 05/20/20 12:44 Pertinent Admission Physical Exam Findings: Vital Signs Temperature 97.1 F L 05/20/20 12:44 Pulse Rate 105 H 05/20/20 12:44 Respiratory Rate 18 05/20/20 12:44 Blood Pressure 111/61 05/20/20 12:44 O2 Sat by Pulse Oximetry (%) 95 05/20/20 12:44 Laboratory Tests 05/18/20 05/18/20 05/18/20 11:45 11:45 11:45 WBC 4.7 RBC 4.41 Hgb 10.7 Hct 34.4 MCV 78.1 L MCH 24.3 L MCHC 31.1 L RDW 21.1 H Plt Count 226 MPV 7.1 L Sodium 140 Potassium 3.8 Chloride 105 Carbon Dioxide 27 Anion Gap 8 BUN 10.1 Creatinine 0.7 Est GFR (CKD-EPI)AfAm 117.91 Est GFR (CKD-EPI)NonAf 101.74 Random Glucose 137 H Calcium 9.0 Total Bilirubin 0.4 AST 76 H ALT 53 Alkaline Phosphatase 94 Total Protein 8.4 H Albumin 4.1 Urine Color Urine Appearance Urine pH Ur Specific [place] Urine Protein Urine Glucose (UA) Urine Ketones Urine Blood Urine Nitrite Urine Bilirubin Urine Urobilinogen Ur Leukocyte Esterase POC Urine HCG, Qual Syphilis Serology Non-reactive COVID-19 (LIBAN) 05/18/20 05/18/20 05/18/20 13:10 15:32 15:32 WBC RBC Hgb Hct MCV MCH MCHC RDW Plt Count MPV Sodium Potassium Chloride Carbon Dioxide Anion Gap BUN Creatinine Est GFR (CKD-EPI)AfAm Est GFR (CKD-EPI)NonAf Random Glucose Calcium Total Bilirubin AST ALT Alkaline Phosphatase Total Protein Albumin Urine Color Yellow Urine Appearance Clear Urine pH 5.5 D Ur Specific [place] 1.031 Urine Protein Trace Urine Glucose (UA) Negative Urine Ketones Trace H Urine Blood Negative Urine Nitrite Negative Urine Bilirubin Negative Urine Urobilinogen 1.0 Ur Leukocyte Esterase Negative POC Urine HCG, Qual Negative Syphilis Serology COVID-19 (LIBAN) Not detected aaox3 ambulating no acute distress lungs cta - Treatment Hospital Course: Rehab Referral Accepted - Medication Discharge Medications: Ambulatory Orders NK [No Known Home Medication] 05/18/20 - Diagnosis (1) Alcohol dependence with uncomplicated withdrawal Current Visit: Yes Status: Acute (2) Cannabis dependence Current Visit: Yes Status: Acute (3) Cocaine dependence Current Visit: Yes Status: Acute Qualifiers: Substance use status: uncomplicated Qualified Code(s): F14.20 - Cocaine dependence, uncomplicated (4) Marijuana dependence Current Visit: Yes Status: Acute (5) Nicotine dependence Current Visit: Yes Status: Acute Qualifiers: Nicotine product type: cigarettes Substance use status: uncomplicated Qualified Code(s): F17.210 - Nicotine dependence, cigarettes, uncomplicated (6) Substance-induced sleep disorder Current Visit: Yes Status: Acute (7) Arthritis Current Visit: Yes Status: Chronic (8) HIV (human immunodeficiency virus infection) Current Visit: Yes Status: Chronic (9) Mood disorder Current Visit: Yes Status: Chronic (10) Bipolar disorder Current Visit: Yes Status: Ruled-out (11) Alcohol dependence Current Visit: No Status: Acute (12) Substance induced mood disorder Current Visit: No Status: Acute (13) Substance-induced anxiety disorder Current Visit: No Status: Acute (14) Hepatitis C Current Visit: No Status: Chronic Qualifiers: Viral hepatitis chronicity: chronic Hepatic coma status: without hepatic coma Qualified Code(s): B18.2 - Chronic viral hepatitis C (15) Hypertension Current Visit: No Status: Chronic Qualifiers: Hypertension type: essential hypertension Qualified Code(s): I10 - Essential (primary) hypertension (16) Schizoaffective disorder Current Visit: No Status: Chronic Qualifiers: Schizoaffective disorder type: bipolar Qualified Code(s): F25.0 - Schizoaffective disorder, bipolar type (17) Anxiety Current Visit: No Status: Suspected (18) Depressed affect Current Visit: No Status: Suspected - AMA Did Patient Leave Against Medical Advice: Yes
[2020-05-21] MEDS ORDERED: chlordiazePOXIDE HCL 10 MG CAPSULE PO PRN
[2020-05-21] MEDS ORDERED: chlordiazePOXIDE HCL 10 MG CAPSULE PO SCH (05:00)
[2020-05-22] MEDS ORDERED: chlordiazePOXIDE HCL 10 MG CAPSULE PO SCH (05:00)
[2020-05-23] MEDS ORDERED: chlordiazePOXIDE HCL 10 MG CAPSULE PO ONE (05:00)
== END 2020-05-20 15:12 | disposition left against medical advice (07) | DRG 770 ==
LOC: YASAS 10:49 → Y6N 11:51
PROVIDERS: ADMIT Allergy & Immunology; ATTEND Allergy & Immunology
PROC: HZ2ZZZZ Detoxification Services for Substance Abuse Treatment (ICD-10-PCS; principal; 2020-05-18)
DX: F10.230 Alcohol dependence with withdrawal, uncomplicated (principal); F14.20 Cocaine dependence, uncomplicated; F12.20 Cannabis dependence, uncomplicated; F17.210 Nicotine dependence, cigarettes, uncomplicated; F19.282 Other psychoactive substance dependence with psychoactive substance-induced sleep disorder; F19.280 Other psychoactive substance dependence with psychoactive substance-induced anxiety disorder; F19.24 Other psychoactive substance dependence with psychoactive substance-induced mood disorder; Z21 Asymptomatic human immunodeficiency virus [HIV] infection status; F39 Unspecified mood [affective] disorder; I10 Essential (primary) hypertension; B18.2 Chronic viral hepatitis C; M12.9 Arthropathy, unspecified; H91.91 Unspecified hearing loss, right ear; N39.44 Nocturnal enuresis; R30.0 Dysuria; R45.89 Other symptoms and signs involving emotional state; Z87.42 Personal history of other diseases of the female genital tract; Z56.0 Unemployment, unspecified; Z59.0 Homelessness; Z87.828 Personal history of other (healed) physical injury and trauma; H53.8 Other visual disturbances
CPT/HCPCS: 36415; 80053; 81003; 81025; 85027; 86780; Q0162; U0003

== ENCOUNTER 2020-08-06 16:49 | Inpatient (IN) | payer OTHER ==
[2020-08-06 20:29] VITALS: BMI 28.3
[2020-08-06] MEDS ORDERED: MAG HYDROX/AL HYDROX/SIMETH 30 ML UNIT-DOSE CUP PO PRN (23:01)
[2020-08-06] MEDS ORDERED: LOPERAMIDE HCL 2 MG CAPSULE PO PRN (23:01)
[2020-08-06] MEDS ORDERED: ACETAMINOPHEN 325 MG TABLET (FP) PO PRN (23:01)
[2020-08-06] MEDS ORDERED: MAGNESIUM HYDROX 2400MG/30ML ORAL SUSPENSION 30 ML CUP PO PRN (23:01)
[2020-08-06] MEDS ORDERED: guaiFENesin 200 MG/10 ML 10 ML UNIT-DOSE CUPS PO PRN (23:01)
[2020-08-06] MEDS ORDERED: MAGNESIUM CITRATE 300 ML BOTTLE PO PRN (23:01)
[2020-08-06] MEDS ORDERED: P-EPHED 60MG/TRIPROLIDI 2.5MG TABLET PO PRN (23:01)
[2020-08-06] MEDS ORDERED: NICOTINE POLACRILEX 2 MG GUM BC PRN (23:01)
[2020-08-06] MEDS ORDERED: NICOTINE 14 MG/24 HOURS TOPICAL PATCH TD PRN (23:06)
[2020-08-07] MEDS: MELATONIN 5 MG TABLETS PO SCH ×2 (00:02→21:22)
[2020-08-07] MEDS ORDERED: MASKS NR ONE (07:59)
[2020-08-07] MEDS: PRENATAL VITAMINS W/ FOLIC ACID TABLET (FP) PO SCH (09:52)
[2020-08-07] MEDS: IBUPROFEN 400 MG TABLET (FP) PO PRN ×2 (09:52→21:23)
[2020-08-07] MEDS: hydrOXYzine PAMOATE 25 MG CAPSULE (FP) PO PRN (09:52)
[2020-08-07] MEDS ORDERED: NICOTINE 14 MG/24 HOURS TOPICAL PATCH TD SCH (10:00)
[2020-08-07 11:50] LABS: HEMATOCRIT 35.4 % (32.4-45.2); HEMOGLOBIN 10.9 GM/dL (10.7-15.3); MCH 24.1 pg (25.7-33.7); MCHC 30.7 g/dl (32.0-36.0); MEAN CELL VOLUME 78.3 fl (80-96); MEAN PLT VOLUME 7.5 fl (7.5-11.1); PLATELET COUNT 245 K/MM3 (134-434); RBC 4.53 M/mm3 (3.60-5.2); RDW 18.8 % (11.6-15.6); WHITE BLOOD COUNT 4.8 K/mm3 (4.0-10.0)
[2020-08-07 11:55] LABS: POTASSIUM 3.1 mmol/L (3.5-5.1)
[2020-08-07 12:00] LABS: CALCIUM 9.2 mg/dL (8.5-10.1)
[2020-08-07 12:01] LABS: ALBUMIN 3.7 g/dl (3.4-5.0); BLOOD UREA NITROGEN 6.7 mg/dL (7-18)
[2020-08-07 12:05] LABS: CREATININE 0.7 mg/dL (0.55-1.3)
[2020-08-07 12:06] LABS: TOT PROT 7.5 g/dl (6.4-8.2)
[2020-08-07 14:08] LABS: EPI CELLS >36 /uL (0-25.1); HYALINE CASTS 20 /uL (0-3.1); URINE APPEARANCE CLOUDY; URINE BACTERIA 2884 /uL (0-1359); URINE BILIRUBIN 1+ (NEGATIVE); URINE COLOR DK YELLOW; URINE GLUCOSE (UA) NEGATIVE (NEGATIVE); URINE KETONE TRACE (NEGATIVE); URINE LEUK ESTERASE 1+ (NEGATIVE); URINE NITRITE NEGATIVE (NEGATIVE); URINE PROTEIN 1+ (NEGATIVE); URINE WBC 189 /uL (0-25.8)
[2020-08-07 14:52] LABS: URINE RBC 69.4 /uL (0-23.9)
[2020-08-07] MEDS: THIAMINE HCL 100 MG TABLET (FP) PO SCH (21:22)
[2020-08-08] MEDS: PRENATAL VITAMINS W/ FOLIC ACID TABLET (FP) PO SCH (10:01)
[2020-08-08] MEDS: hydrOXYzine PAMOATE 25 MG CAPSULE (FP) PO PRN ×2 (10:03→17:28)
[2020-08-08] MEDS: IBUPROFEN 400 MG TABLET (FP) PO PRN (10:03)
[2020-08-08] MEDS: SULFAMETHOXAZOLE/TRIMETHOPRIM 800MG/160MG D.S. TABLET PO SCH ×2 (10:28→21:21)
[2020-08-08] MEDS: MELATONIN 5 MG TABLETS PO SCH (21:20)
[2020-08-08] MEDS: THIAMINE HCL 100 MG TABLET (FP) PO SCH (21:20)
[2020-08-09 07:19] VITALS: BP 112/80; PULSE 99; TEMP 97.1
[2020-08-09] MEDS: SULFAMETHOXAZOLE/TRIMETHOPRIM 800MG/160MG D.S. TABLET PO SCH (09:17)
[2020-08-09] MEDS: PRENATAL VITAMINS W/ FOLIC ACID TABLET (FP) PO SCH (09:17)
[2020-08-09] MEDS: IBUPROFEN 400 MG TABLET (FP) PO PRN (09:18)
== END 2020-08-09 10:25 | disposition left against medical advice (07) | DRG 770 ==
LOC: YASAS 16:49 → Y3E 22:50
PROVIDERS: ADMIT Allergy & Immunology; ATTEND Allergy & Immunology
PROC: HZ2ZZZZ Detoxification Services for Substance Abuse Treatment (ICD-10-PCS; principal; 2020-08-06)
DX: F10.230 Alcohol dependence with withdrawal, uncomplicated (principal); F14.20 Cocaine dependence, uncomplicated; F12.21 Cannabis dependence, in remission; F17.210 Nicotine dependence, cigarettes, uncomplicated; I10 Essential (primary) hypertension; N39.0 Urinary tract infection, site not specified; I45.81 Long QT syndrome; M06.9 Rheumatoid arthritis, unspecified
CPT/HCPCS: 36415; 80053; 81003; 85027; 86780; 93005; 93010; C9803; U0003

== ENCOUNTER 2020-10-12 09:01 | Inpatient (IN) | payer OTHER ==
[2020-10-12 09:38] VITALS: BMI 26.6
[2020-10-12] MEDS ORDERED: NICOTINE POLACRILEX 2 MG GUM BUC PRN (09:52)
[2020-10-12] MEDS ORDERED: MAG HYDROX/AL HYDROX/SIMETH 30 ML UNIT-DOSE CUP PO PRN (09:52)
[2020-10-12] MEDS ORDERED: IBUPROFEN 400 MG TABLET (FP) PO PRN (09:52)
[2020-10-12] MEDS ORDERED: MAGNESIUM CITRATE 300 ML BOTTLE PO PRN (09:52)
[2020-10-12] MEDS ORDERED: METHOCARBAMOL 500 MG TABLET PO PRN (09:52)
[2020-10-12] MEDS ORDERED: ONDANSETRON *ODT* 4 MG TABLET SL PRN (09:52)
[2020-10-12] MEDS ORDERED: MAGNESIUM HYDROX 2400MG/30ML ORAL SUSPENSION 30 ML CUP PO PRN (09:52)
[2020-10-12] MEDS ORDERED: ACETAMINOPHEN 325 MG TABLET (FP) PO PRN ×2 (09:52)
[2020-10-12] MEDS ORDERED: LORazepam 1 MG TABLET PO PRN (09:52)
[2020-10-12] MEDS ORDERED: MENTHOL/PHENOL 1 EACH UD MM PRN (09:52)
[2020-10-12] MEDS ORDERED: BISMUTH SUBSALICYLATE 262 MG/15 ML BTL PO PRN (09:52)
[2020-10-12] MEDS: PRENATAL VITAMINS W/ FOLIC ACID TABLET (FP) PO SCH (11:18)
[2020-10-12] MEDS: hydrOXYzine PAMOATE 25 MG CAPSULE (FP) PO SCH ×4 (11:18→22:23)
[2020-10-12] MEDS: LORazepam 2 MG TABLET PO SCH ×3 (11:18→22:22)
[2020-10-12] MEDS: NICOTINE 7 MG/24 HOURS TOPICAL PATCH TD SCH (11:19)
[2020-10-12 12:49] LABS: POTASSIUM 3.7 mmol/L (3.5-5.1)
[2020-10-12 12:57] LABS: ALBUMIN 3.9 g/dl (3.4-5.0); BLOOD UREA NITROGEN 15.2 mg/dL (7-18); CALCIUM 9.5 mg/dL (8.5-10.1)
[2020-10-12 13:00] LABS: CREATININE 0.8 mg/dL (0.55-1.3)
[2020-10-12 13:03] LABS: BILIRUBIN,TOTAL 0.9 mg/dL (0.2-1); TOT PROT 8.2 g/dl (6.4-8.2)
[2020-10-12 13:43] LABS: HEMATOCRIT 34.3 % (32.4-45.2); HEMOGLOBIN 10.9 GM/dL (10.7-15.3); MCH 25.2 pg (25.7-33.7); MCHC 31.8 g/dl (32.0-36.0); MEAN CELL VOLUME 79.5 fl (80-96); MEAN PLT VOLUME 8.1 fl (7.5-11.1); PLATELET COUNT 300 K/MM3 (134-434); RBC 4.31 M/mm3 (3.60-5.2); WHITE BLOOD COUNT 6.7 K/mm3 (4.0-10.0)
[2020-10-12] MEDS: QUEtiapine FUMARATE 100 MG TABLET (FP) PO SCH (22:22)
[2020-10-12] MEDS: THIAMINE HCL 100 MG TABLET (FP) PO SCH (22:23)
[2020-10-12] MEDS: MELATONIN 5 MG TABLETS PO SCH (22:23)
[2020-10-13] MEDS: hydrOXYzine PAMOATE 25 MG CAPSULE (FP) PO SCH ×5 (06:27→22:21)
[2020-10-13] MEDS: LORazepam 2 MG TABLET PO SCH ×4 (06:27→22:21)
[2020-10-13] MEDS: NICOTINE 7 MG/24 HOURS TOPICAL PATCH TD SCH (10:37)
[2020-10-13] MEDS: PRENATAL VITAMINS W/ FOLIC ACID TABLET (FP) PO SCH (10:37)
[2020-10-13] MEDS ORDERED: FLU VACCINE (FLULAVAL) PF 60 MCG/0.5 ML SYRINGE 2020-2021 IM ONE (12:00)
[2020-10-13] MEDS ORDERED: PNEUMOCOCCAL 23 VACCINE 0.5 ML VIAL IM ONE (12:00)
[2020-10-13] MEDS ORDERED: PNEUMOC 13-VAL CONJ-DIP CRM/PF 0.5 ML DISP.SYRIN IM ONE (12:00)
[2020-10-13] MEDS: QUEtiapine FUMARATE 100 MG TABLET (FP) PO SCH (22:21)
[2020-10-13] MEDS: THIAMINE HCL 100 MG TABLET (FP) PO SCH (22:21)
[2020-10-13] MEDS: MELATONIN 5 MG TABLETS PO SCH (22:22)
[2020-10-14] MEDS: LORazepam 1 MG TABLET PO SCH ×4 (07:14→22:13)
[2020-10-14] MEDS: hydrOXYzine PAMOATE 25 MG CAPSULE (FP) PO SCH ×5 (07:15→22:16)
[2020-10-14] MEDS: PRENATAL VITAMINS W/ FOLIC ACID TABLET (FP) PO SCH (10:20)
[2020-10-14] MEDS: NICOTINE 7 MG/24 HOURS TOPICAL PATCH TD SCH (10:21)
[2020-10-14] MEDS: THIAMINE HCL 100 MG TABLET (FP) PO SCH (22:15)
[2020-10-14] MEDS: QUEtiapine FUMARATE 100 MG TABLET (FP) PO SCH (22:15)
[2020-10-14] MEDS: MELATONIN 5 MG TABLETS PO SCH (22:16)
[2020-10-15] MEDS ORDERED: LORazepam 0.5 MG TABLET PO PRN
[2020-10-15] MEDS: LORazepam 0.5 MG TABLET PO SCH ×2 (05:38→10:10)
[2020-10-15] MEDS: hydrOXYzine PAMOATE 25 MG CAPSULE (FP) PO SCH ×3 (05:39→13:33)
[2020-10-15] MEDS: PRENATAL VITAMINS W/ FOLIC ACID TABLET (FP) PO SCH (10:15)
[2020-10-15] MEDS: NICOTINE 7 MG/24 HOURS TOPICAL PATCH TD SCH (10:16)
[2020-10-15 13:13] VITALS: BP 98/68; PULSE 126; TEMP 98.4
[2020-10-16] MEDS ORDERED: LORazepam 0.5 MG TABLET PO ONE (05:00)
== END 2020-10-15 15:59 | disposition home or self-care (01) | DRG 774 ==
LOC: YASAS 09:01 → Y6N 10:28
PROVIDERS: ADMIT Allergy & Immunology; ATTEND Allergy & Immunology
PROC: HZ2ZZZZ Detoxification Services for Substance Abuse Treatment (ICD-10-PCS; principal; 2020-10-12)
DX: F10.230 Alcohol dependence with withdrawal, uncomplicated (principal); F14.20 Cocaine dependence, uncomplicated; F13.20 Sedative, hypnotic or anxiolytic dependence, uncomplicated; F12.20 Cannabis dependence, uncomplicated; F17.210 Nicotine dependence, cigarettes, uncomplicated; F19.282 Other psychoactive substance dependence with psychoactive substance-induced sleep disorder; F19.24 Other psychoactive substance dependence with psychoactive substance-induced mood disorder; F39 Unspecified mood [affective] disorder; F41.0 Panic disorder [episodic paroxysmal anxiety]; F41.9 Anxiety disorder, unspecified; Z21 Asymptomatic human immunodeficiency virus [HIV] infection status; I10 Essential (primary) hypertension; B18.2 Chronic viral hepatitis C; M06.9 Rheumatoid arthritis, unspecified; Z86.19 Personal history of other infectious and parasitic diseases; Z56.0 Unemployment, unspecified; Z59.0 Homelessness
CPT/HCPCS: 36415; 80053; 81025; 85027; 86780; 90732; C9803; G0008; G0009; Q2036; U0003